=== PATIENT | female | born 1955 | race Caucasian/White ===

== ENCOUNTER 2018-11-26 00:26 | Outpatient (CLI) | payer MEDICAID, SELFPAY ==
--- NOTE | 2018-11-26 12:03 | DI.RAD_ITS ---
SYMPTOMS/DIAGNOSIS: THORACIC BACK PAIN, DORSALGIA, M54.9, LOW BACK PAIN, RT SHOULDER PAIN, M25.519 THORACIC SPINE: Comparison is made with chest x-ray dated . There is stable mild anterior wedging of T 12. There is a mild dextroscoliosis vs patient positioning. Endplate osteophytes are seen greatest on the right and anteriorly in the mid to lower thoracic region. The visualized portions of the lungs appear clear. IMPRESSION: Stable mild degenerative changes and scoliosis. LUMBAR SPINE: Comparison is made with . The patient has undergone posterior fusion with hardware seen at the L 5 - S 1 level for spondylolysis and spondylolisthesis. There is mild spondylolisthesis at L 4 - 5 which appears to be secondary to facet joint degenerative changes. No spondylolysis is seen. The disc spaces are well maintained. Endplate osteophytes are seen greater in the upper lumbar levels. IMPRESSION: Mild L 4 - 5 spondylolisthesis. Status post fusion at L 5 - S 1. RIGHT SHOULDER: There is mild spurring at the AC joint. Spurring is seen at the inferior glenoid and adjacent aspect of the humeral head. The joint space is relatively well maintained. No tendon or joint space calcifications are seen. There is a small bone island in the proximal humeral shaft. IMPRESSION: Mild to moderate degenerative changes.
--- NOTE | 2018-11-26 12:39 | DI.MAMMO_ITS ---
SYMPTOM/DIAGNOSIS: SCREENING, Z12.31 MAMMOGRAMS: Mammograms were interpreted according to the usual protocol including computer analysis with CAD system, tomosynthesis and C view imaging. Comparison is made with exams from 2009 and 2013. The breasts are composed of fatty density tissue. Breast density, Category A. No suspicious masses or suspicious microcalcifications are seen. There has been no significant change. IMPRESSION: Category 1A, negative mammogram. Yearly screening mammography is recommended. [facility] ASSESSMENT OF FINDINGS: Negative. Category 1. Patient will receive a letter notifying them of these results. BI-RAD category A. The breasts are almost entirely fatty.
--- NOTE | 2018-11-26 13:43 | DI.RAD_ITS ---
SYMPTOMS/DIAGNOSIS: OSTEOPENIA, M85.80 DEXA SCAN: Comparison is made with November,. The LANCE image shows hardware at the L5-S1 level. There is mild anterior wedging at the T11 and T12 levels, which appears stable from previous chest x-ray. The bone mineral density measurements of the lumbar spine correspond to a total T score of -0.4, in the normal range. This is a 10.7% decrease when compared with 2008. The bone mineral density measurements of the left hip correspond to a total T score of 0.2 and a femoral neck T score of -0.5, in the normal range. This is a 10.4% decrease when compared with 2008. The left forearm bone mineral density measurements correspond to a T score of the distal third of -0.6, in the normal range. The forearm was not analyzed on the previous exam. IMPRESSION: Normal bone mineral density. There has been a decrease in bone density of the hip and spine of approximately 10% when compared with the previous exam.
[2018-11-26 14:50] LABS: COMMENT (LAB VIEW ONLY) 30.31 mg/dL; Microalb ug/mg Crea 29.4 ug/mg Cr
[2018-11-26 14:56] LABS: HCT 44.3 % (36.0-46.0); HGB 14.9 g/dL (12.0-15.5); Mean Corp. HGB Concentration 33.6 g/dL (32.0-36.0); Mean Corpuscular Hemoglobin 29.4 pg (27.0-33.0); Mean Corpuscular Volume 87.4 fL (80-95); Mean Platelet Volume 10.4 fL (8.0-11.0); Platelet Count 430 x1000/uL (130-400); RBC 5.07 m/cumm (4.00-5.20); RBC Distribution Width 14.4 % (11.7-14.6); White Blood Cell Count 22.66 k/cumm (4.4-10.8)
[2018-11-26 15:01] LABS: ALT 29 U/L (12-78); AST 12 U/L (15-37); Albumin 3.5 g/dL (3.4-5.0); Alkaline Phosphatase 99 U/L (46-116); Anion Gap 10.8 mmol/L (3-11); BUN 24 mg/dL (7-18); Bilirubin, Total 0.4 mg/dL (0.2-1.0); CO2 29.2 mmol/L (21.0-32.0); CREATININE 1.35 mg/dL (0.55-1.02); Calcium 10.2 mg/dL (8.5-10.1); Chloride 99 mmol/L (98-107); Cholesterol 168 mg/dL (50-200); Estimated GFR 39.48 (mL/min/1.73m2); Glucose 260 mg/dL (70-100); HDL Cholesterol 54 mg/dL (40-60); LDL CHOLESTEROL 80 mg/dL (<100); Potassium 4.5 mmol/L (3.5-5.1); Sodium 139 mmol/L (136-145); Total Protein 7.9 g/dL (6.4-8.2); Triglyceride 183 mg/dL (30-150)
[2018-11-26 15:12] LABS: Hemoglobin A1C 7.2 % (4.5-6.2)
[2018-11-28 12:15] LABS: Lyme Ab w Rflx to Lyme Confirm Negative
[2018-11-30 21:19] LABS: Anaplasma phagocytophilum Negative (Negative); B. miyamotoi PCR Negative (Negative); Babesia divergens/MO-1 Negative (Negative); Babesia duncani Negative (Negative); Babesia microti Negative (Negative); Ehrlichia chaffeensis Negative (Negative); Ehrlichia ewingii/canis Negative (Negative); Ehrlichia muris eauclairensis Negative (Negative)
== END 2018-11-26 00:46 ==
PROVIDERS: PCP Family Medicine; Visit Provider Family Medicine
DX: M85.88 Other specified disorders of bone density and structure, other site (principal); M54.6 Pain in thoracic spine; M47.814 Spondylosis without myelopathy or radiculopathy, thoracic region; M54.5 Low back pain; M43.17 Spondylolisthesis, lumbosacral region; Z98.1 Arthrodesis status; M25.511 Pain in right shoulder; M19.011 Primary osteoarthritis, right shoulder; R53.83 Other fatigue; I10 Essential (primary) hypertension; E11.9 Type 2 diabetes mellitus without complications; W57.XXXA Bitten or stung by nonvenomous insect and other nonvenomous arthropods, initial encounter; T14.8XXA Other injury of unspecified body region, initial encounter
CPT/HCPCS: 36415; 77063; 77067; 77080; 80053; 80061; 83721; 85027; 72072; 72110; 73030; 82043; 82570; 83036; 86618; 87798

== ENCOUNTER 2018-12-20 10:55 | Outpatient (CLI) | payer MEDICAID, SELFPAY ==
[2018-12-20 11:19] LABS: Abs Immature Grans 0.02 k/cumm (0.0-0.09); Absolute Basophil Count 0.02 k/cumm (0.0-0.2); Absolute Eosinophil Count 0.26 k/cumm (0.0-0.7); Absolute Lymphocyte Count 3.12 k/cumm (1.2-3.4); Basophils % 0.2; Eosinophils % 2.3; HCT 42.7 % (36.0-46.0); HGB 14.1 g/dL (12.0-15.5); Immature Grans % 0.2; Lymphocytes % 27.6; Mean Corpuscular Hemoglobin 29.9 pg (27.0-33.0); Mean Corpuscular Volume 90.5 fL (80-95); Mean Platelet Volume 9.8 fL (8.0-11.0); Neutrophils % 64.7; Platelet Count 291 x1000/uL (130-400); RBC 4.72 m/cumm (4.00-5.20); RBC Distribution Width 14.7 % (11.7-14.6); White Blood Cell Count 11.29 k/cumm (4.4-10.8)
[2018-12-20 11:23] LABS: Absolute Monocyte Count 0.56 k/cumm (0.11-0.7)
[2018-12-20 12:38] LABS: ALT 39 U/L (12-78); AST 26 U/L (15-37); Albumin 3.1 g/dL (3.4-5.0); Alkaline Phosphatase 83 U/L (46-116); BUN 23 mg/dL (7-18); Bilirubin, Total 0.5 mg/dL (0.2-1.0); Calcium 9.1 mg/dL (8.5-10.1); Chloride 103 mmol/L (98-107); Estimated GFR 50.01 (mL/min/1.73m2); Glucose 202 mg/dL (70-100); Potassium 4.6 mmol/L (3.5-5.1); Sodium 141 mmol/L (136-145)
== END 2018-12-20 11:15 ==
PROVIDERS: PCP Family Medicine; Visit Provider Family Medicine
DX: D72.829 Elevated white blood cell count, unspecified (principal); R79.89 Other specified abnormal findings of blood chemistry
CPT/HCPCS: 36415; 80053; 85025

== ENCOUNTER 2019-02-11 13:34 | Day surgery (SDC) | payer MEDICAID, SELFPAY ==
[2019-02-11 14:12] VITALS: BP 174/64; PULSE 72; RESP 16; TEMP 36.4; O2SAT 96
[2019-02-11] MEDS: Lidocaine 1% Multi-Dose 50 ML VIAL (15:24)
[2019-02-11] MEDS: Sodium Bicarbonate 50 MEQ/50 ML VIAL (15:24)
[2019-02-11] MEDS: Bupivacaine 0.5% Pres-Free 30 ML VIAL (15:40)
--- NOTE | 2019-02-11 16:08 | W.PM.DSUDISC ---
Discharge Plan Disposition Patient Disposition: HOME Condition: Good Discharge Details Reason For Visit: R Hand Dupuytren's Contracture Attending Provider: Tyler Stubbs Primary Care Provider: Kelin Johansen Home Meds and New Rx's Prescriptions: New tramadol 50 mg tablet 50 mg PO Q4H PRN (Reason: pain) Qty: 15 RF: 0 Continued calcium carbonate-vitamin D3 [Oystercal-D] 500 mg(1,250mg) -400 unit tablet 1 tab PO DAILY Qty: 90 RF: 12 cyanocobalamin (vitamin B-12) [Vitamin B-12] 1,000 mcg tablet extended release 1,000 mcg PO DAILY Qty: 90 RF: 4 Novolog U-100 Insulin aspart 100 unit/mL solution 45 unit subcut AC Qty: 10 RF: 12 nystatin [Nystop] 100,000 unit/gram powder 1 applic Topical BID PRN (Reason: rash) Qty: 180 RF: 4 potassium chloride 20 mEq tablet,ER particles/crystals 20 meq PO BID Qty: 180 RF: 12 citalopram [Celexa] 20 mg tablet 20 mg PO DAILY Qty: 90 RF: 4 metoprolol succinate [Toprol XL] 50 mg tablet extended release 24 hr 50 mg PO DAILY Qty: 90 RF: 4 ibuprofen 600 mg tablet 600 mg PO QID PRN (Reason: pain) Qty: 120 RF: 11 BD Insulin Syringe 1 EACH syringe 1 ea Sub-Q DIRECTED Qty: 360 RF: 12 aspirin [Aspirin Low-Strength] 81 MG tablet,chewable 81 mg PO DAILY RF: 0 Thera-Gesic 90 GM cream 2 - 4 gm Topical BID Qty: 90 RF: 3 lorazepam [Ativan] 1 MG tablet 1 tab PO DAILY PRNQty: 30 RF: 2 Narcan 4 MG spray,non-aerosol 4 mg NS PRN Qty: 2 RF: 0 acetaminophen [Tylenol Extra Strength] 500 MG tablet 2,000 mg PO Q4H PRN RF: 0 triamcinolone acetonide 15 GM cream 2 - 4 gm Topical BID PRNQty: 454 RF: 3 magnesium L-lactate [Magtab] 84 mg tablet extended release 336 mg PO TID Qty: 360 RF: 11 blood-glucose meter kit .ROUTE .MEDSUPPLY Qty: 1 RF: 0 blood sugar diagnostic strip .ROUTE .MEDSUPPLY Qty: 400 RF: 11 furosemide [Lasix] 40 mg tablet 40 mg PO BID Qty: 180 RF: 4 gabapentin [Neurontin] 600 mg tablet See Rx Instructions PO DIRECTED Qty: 270 RF: 4 losartan [Cozaar] 100 mg tablet 100 mg PO DAILY Qty: 90 RF: 4 metformin [Glucophage] 1,000 mg tablet 1,000 mg PO DAILY Qty: 90 RF: 4 rosuvastatin [Crestor] 5 mg tablet 5 mg PO DAILY Qty: 90 RF: 4 lancets [OneTouch Delica Lancets] 33 gauge misc 1 ea Intradermal QID Qty: 400 RF: 12 BD Insulin Syringe 1 mL 26 x 1/2 syringe 1 ea Sub-Q AC & HS Qty: 360 RF: 12 allopurinol 100 mg tablet 100 mg PO DAILY Qty: 90 RF: 12 OneTouch Ultra Test strip 1 strip Miscellaneous QID Qty: 4 RF: 12 Lantus U-100 Insulin 100 unit/mL solution 90 unit subcut HS Qty: 10 RF: 12 lidocaine [Lidoderm] 5 % adhesive patch,medicated 1 patch TP DAILY Qty: 30 RF: 6 Synera 70-70 mg patch, medicated self-heating 1 patch TD DAILY AM PRN (Reason: pain) Qty: 30 RF: 4 tramadol [Ultram] 50 mg tablet 50 mg PO TID PRN (Reason: pain) Qty: 90 RF: 2 Airzone Peak Flow Meter 1 EACH device 1 ea Miscellaneous Q4H PRN PRNQty: 1 RF: 0 Discharge Instructions Additional Instructions: Activity: You may use your fingers as tolerated but should avoid any heavy gripping or repetitive activities with the right hand. Keep elevated for the first 48 hours. Dressings: You should keep the wound covered until follow-up. You may keep the initial dressing in place until follow-up, but keep clean and dry. If it gets soiled or wet, you can change the dressing with a light gauze wrap. The wounds may get wet after 72 hours. Medications: - You should take Tylenol and ibuprofen for baseline pain control. - You have Tramadol for breakthrough pain. Follow-up: Sunday Referrals: Tyler Stubbs MD [ [facility] STAFF PHYSICIAN] - Activity:: Elevate Remove Dressings/Wound Care:: 72 hours Shower/Bathe:: 72 hours Diet:: Carb Counting Discharge Orders Discharge Orders: Discharge Order (Routine); Ordered 02/11/19 Ordered By: Tyler Stubbs DS: Diagnosis Discharge Diagnosis (1) Dupuytren's contracture of right hand: Status: Chronic
--- NOTE | 2019-02-12 09:18 | ROE_ITS ---
REPORT OF OPERATIVE DATE OF SURGERY February 11, 2019 PREOPERATIVE DIAGNOSIS Right hand Dupuytren's contracture. POSTOPERATIVE DIAGNOSIS Right hand Dupuytren's contracture. SURGERY Partial palmar fasciectomy of the right hand and right ring finger. SURGEON Tyler Stubbs M.D. CHIEF MEDICAL DIRECTOR John Peralta PA-C. ANESTHESIA Local. FINDINGS There were two central cords easily palpable involving the ring finger, and one was actually going to wards the little finger. There was also a lesser prominent central cord involving the middle finger. The ring finger central cord was excised incompletely. The cords for the little and middle fingers we re partially excised and then released. The central cord terminated at the level of the MP joint, but there was still persistent contracture of the PIP joint of the ring finger. Further dissection ident ified a spiral cord, which had elevated the neurovascular bundle palmarly. The neurovascular bundle w as retracted and the spiral cord was released giving full range of motion of the ring finger. COMPLICATIONS None. DISPOSITION The patient was taken back the Same Day Surgery in stable condition. INDICATION FOR PROCEDURE Samantha is a 63-year-old who has had issues with her right hand with Dupuytren's contracture. She p reviously underwent a collagenase injection to the right hand. However, after some initial moderate i mprovement, things returned. She had notable cord within the palm, but also contracture of the ring f carley PIP joint of at least 30 degrees. Given these findings, I recommended surgical treatment. We di scussed possible treatment options and she agreed to proceed with partial fasciectomy. I reviewed th e risks of the procedure to include bleeding, infection, pain, damage to nerves and vessels, skin hea ling complications, recurrence. Despite these risks, she elected to proceed. PROCEDURE DESCRIPTION Samantha was greeted in the Preoperative Holding area. Her identity was confirmed and the correct si de was identified and marked. She was taken back to the Operating Room. She was placed in the supine position with the right hand o n the hand table. The right hand was prepped with ChloraPrep and draped in a standard fashion. No pro phylactic antibiotics were necessary given a clean hand procedure. A timeout was performed for safe s urgery. The proposed surgical site was anesthetized with 1% lidocaine. Once this has set up, the area was fur ther anesthetized with 0.5% bupivacaine. A Rigoberto incision was centered primarily over the ring fing er ray, but extended slightly towards the little and middle finger for evaluation of those cords thro ugh the same incision. The incision was following the normal palmar creases and making sure not to cr oss any at right angles. This incision was taken up onto the ulnar side of the ring finger where ther e was a likely spiral cord. These Rigoberto-type incisions were opened up with blunt dissection. We sta rted proximally where a central cord was easily identifiable. This was excised all the way up to abou t the __ MP joint. The underlying flexor tendon and the A1 miguel angel were identified as well, and this A 1 miguel angel was released. A small central cord neighboring the ring finger were also identified. These w ere dissected with blunt dissection and then they were sharply excised. This removed the nodularity o f the palm. The cords were no longer palpable. However, there still was significant contracture of th e PIP joint of the ring finger. Therefore, the incisions were carried up over the ulnar aspect of the ring finger. The neurovascular bundle appeared to move palmarly in this area. The neurovascular bund le was retracted, which exposed a spiral cord. It was palpated and sequentially released. I did not t ry to excise the spiral cord given the complexity and its location, but did release it completely so the finger had full range of motion with no contracture. There was no significant bleeding encountere d, but there was a persistent ooze. No tourniquet was used. It did not appear to have any damage to t he neurovascular bundle of the ring finger. The wound was thoroughly irrigated. The skin was closed w ith #5-0 Nylon. The wound was dressed with Xeroform gauze, 4x4 fluffs, and an Dhruv wrap. At the end o f the case, all counts were correct and she was transferred back to the Same Day Surgery in stable co ndition.
== END 2019-02-11 16:35 | disposition home or self-care (01) ==
PROVIDERS: PCP Family Medicine; Visit Provider Student in an Organized Health Care Education/Training Program
PROC: (CPT 26123; principal; 2019-02-11 15:00)
DX: M72.0 Palmar fascial fibromatosis [Dupuytren] (principal)
CPT/HCPCS: 26123

== ENCOUNTER 2019-03-03 15:01 | Outpatient (CLI) | payer MEDICAID, SELFPAY ==
[2019-03-03 15:44] LABS: Abs Immature Grans 0.05 k/cumm (0.0-0.09); Absolute Basophil Count 0.04 k/cumm (0.0-0.2); Absolute Lymphocyte Count 4.74 k/cumm (1.2-3.4); Absolute Monocyte Count 0.69 k/cumm (0.11-0.7); Absolute Neutrophil Count 6.88 k/cumm (1.2-6.7); Basophils % 0.3; Eosinophils % 2.4; HCT 45.5 % (36.0-46.0); Immature Grans % 0.4; Lymphocytes % 37.3; Mean Corpuscular Hemoglobin 29.9 pg (27.0-33.0); Mean Corpuscular Volume 90.8 fL (80-95); Mean Platelet Volume 10.1 fL (8.0-11.0); Monocytes % 5.4; Neutrophils % 54.2; Platelet Count 309 x1000/uL (130-400); RBC 5.01 m/cumm (4.00-5.20); RBC Distribution Width 14.5 % (11.7-14.6)
[2019-03-03 16:20] LABS: Hemoglobin A1C 7.5 % (4.5-6.2)
[2019-03-03 16:23] LABS: ALT 34 U/L (12-78); AST 13 U/L (15-37); Albumin 3.2 g/dL (3.4-5.0); Alkaline Phosphatase 76 U/L (46-116); Anion Gap 6.3 mmol/L (3-11); BUN 24 mg/dL (7-18); Bilirubin, Total 0.4 mg/dL (0.2-1.0); CO2 31.7 mmol/L (21.0-32.0); CREATININE 1.05 mg/dL (0.55-1.02); Calcium 9.2 mg/dL (8.5-10.1); Chloride 101 mmol/L (98-107); Estimated GFR 52.76 (mL/min/1.73m2); Glucose 158 mg/dL (70-100); Sodium 139 mmol/L (136-145); Total Protein 7.3 g/dL (6.4-8.2)
== END 2019-03-03 15:21 ==
PROVIDERS: PCP Family Medicine; Visit Provider Family Medicine
DX: D72.829 Elevated white blood cell count, unspecified (principal); I10 Essential (primary) hypertension; N28.9 Disorder of kidney and ureter, unspecified
CPT/HCPCS: 80053; 85027; 83036; 85025

== ENCOUNTER → 2019-05-05 10:49 | Outpatient (BNVA) | payer MEDICARE, MEDICAID, SELFPAY | PROVIDERS: PCP Family Medicine; Referring Provider Family Medicine; Visit Provider Student in an Organized Health Care Education/Training Program | DX: M17.11 Unilateral primary osteoarthritis, right knee (principal); M17.12 Unilateral primary osteoarthritis, left knee; I10 Essential (primary) hypertension; E11.9 Type 2 diabetes mellitus without complications | CPT/HCPCS: 20610; 99213; J1040 ==

== ENCOUNTER 2019-07-29 12:33 | Outpatient (REF) | payer MEDICARE, MEDICAID, SELFPAY ==
[2019-07-29 13:57] LABS: Bilirubin Negative (Negative); Blood Small (Negative); Clarity Cloudy (Clear); Glucose Negative (Negative); Ketones Negative (Negative); Leukocyte Esterase Moderate (Negative); Nitrite Positive (Negative); Urobilinogen 0.2 EU/dL (Up TO 0.2); pH 6.5 (5-8)
[2019-07-29 14:12] LABS: Bacteria Moderate HPF (Negative); C & S Indicated? Yes; Casts Negative LPF (Negative); Crystals Negative HPF (Negative); Epithelial Cells Few HPF (Negative); Mucus Negative (Negative); WBC >50 HPF (0-5)
== END 2019-07-29 12:53 ==
LOC: LBN 12:33
PROVIDERS: PCP Family Medicine; Visit Provider Family Medicine
DX: R39.89 Other symptoms and signs involving the genitourinary system (principal)
CPT/HCPCS: 87077; 81003; 81015; 87086; 87186

== ENCOUNTER 2019-12-30 15:33 | Outpatient (CLI) | payer MEDICARE, SELFPAY ==
[2019-12-30 16:49] LABS: ALT 30 U/L (14-59); AST 26 U/L (15-37); Albumin 3.6 g/dL (3.4-5.0); Alkaline Phosphatase 79 U/L (46-116); Anion Gap 8.8 mmol/L (3-11); BUN 22 mg/dL (7-18); Bilirubin, Total 0.5 mg/dL (0.2-1.0); CO2 31.2 mmol/L (21.0-32.0); Calculated LDL 58 mg/dL (<100); Chloride 102 mmol/L (98-107); Cholesterol 142 mg/dL (<200); Glucose 179 mg/dL (74-106); HDL Cholesterol 44 mg/dL (40-60); Potassium 3.6 mmol/L (3.5-5.1); Sodium 142 mmol/L (136-145); Total Protein 7.3 g/dL (6.4-8.2); Triglyceride 203 mg/dL (<150)
[2019-12-30 17:09] LABS: Uric Acid 4.9 mg/dL (2.6-6.0)
[2019-12-30 18:39] LABS: Hemoglobin A1C 6.9 % (3.8-5.6)
== END 2019-12-30 15:53 ==
PROVIDERS: PCP Family Medicine; Visit Provider Family Medicine
DX: D72.829 Elevated white blood cell count, unspecified (principal); E11.39 Type 2 diabetes mellitus with other diabetic ophthalmic complication; N28.9 Disorder of kidney and ureter, unspecified; I10 Essential (primary) hypertension; M10.9 Gout, unspecified
CPT/HCPCS: 36415; 80053; 80061; 83036; 84550

== ENCOUNTER → 2021-02-25 08:52 | Outpatient (BNVA) | payer MEDICARE, SELFPAY | PROVIDERS: PCP Family Medicine; Referring Provider Family Medicine; Visit Provider Student in an Organized Health Care Education/Training Program | DX: M72.0 Palmar fascial fibromatosis [Dupuytren] (principal); Z98.890 Other specified postprocedural states | CPT/HCPCS: 99213 ==

== ENCOUNTER 2021-03-03 01:54 | Outpatient (CLI) | payer MEDICARE, SELFPAY ==
--- NOTE | 2021-03-03 07:30 | DI.RAD_ITS ---
Exam(s) XR CHEST 2V PA LATERAL EXAM: XR CHEST 2V PA LATERAL CLINICAL HISTORY: F/U OUTSIDE CHEST XR,ENLARGED HEART,R93.89 TECHNIQUE: COMPARISON: CR XR Chest 2 Views from 07/12/2020 FINDINGS: The heart appears mildly enlarged. The lungs are predominantly clear with apparent small area of sca rring in mid left lung. No pleural effusion seen. No gross interval change appearance comparison wi prior examination July 12, 2020. IMPRESSION: RADIATION DOSE DELIVERED: Total DLP
== END 2021-03-03 02:14 ==
PROVIDERS: PCP Family Medicine; Visit Provider Family Medicine
DX: I51.7 Cardiomegaly (principal); J98.4 Other disorders of lung
CPT/HCPCS: 71046

== ENCOUNTER 2021-04-20 08:33 | Day surgery (SDC) | payer MEDICARE, SELFPAY ==
[2021-04-20 08:37] VITALS: BP 149/59; PULSE 73; RESP 15; TEMP 36.3; O2SAT 95
--- NOTE | 2021-04-20 10:16 | W.PM.DSUDISC ---
Discharge Plan Disposition Patient Disposition: HOME Condition: Stable Discharge Details Reason For Visit: Left Dupuytren's contracture Attending Provider: Tyler Stubbs Primary Care Provider: Kelin Johansen Home Meds and New Rx's Prescriptions: New hydrocodone-acetaminophen 5-325 mg tablet 1 tab PO Q6H PRNQty: 5 RF: 0 Continued (DME) BD Insulin Syringe 1 EACH syringe 1 ea Sub-Q DIRECTED Qty: 360 RF: 12 aspirin [Aspirin Low-Strength] 81 MG tablet,chewable 81 mg PO DAILY RF: 0 Narcan 4 MG spray,non-aerosol 4 mg NS PRN Qty: 2 RF: 0 acetaminophen [Tylenol Extra Strength] 500 MG tablet 2,000 mg PO Q4H PRN RF: 0 (DME) blood-glucose meter kit See Dose Instructions .ROUTE .MEDSUPPLY Qty: 1 RF: 0 albuterol sulfate [Ventolin HFA] 90 mcg/actuation HFA aerosol inhaler 2 puff IH Q6H PRN (Reason: shortness of breath or wheezing) Qty: 8.5 RF: 12 triamcinolone acetonide 0.1 % cream 1 applic Topical BID PRN (Reason: psoriasis) Qty: 454 RF: 6 gabapentin [Neurontin] 600 mg tablet See Rx Instructions PO DIRECTED Qty: 270 RF: 4 (DME) blood sugar diagnostic Strip 1 strip Miscellaneous QID Qty: 300 RF: 12 (DME) lancets [OneTouch Delica Lancets] 33 gauge misc 1 ea Intradermal QID Qty: 300 RF: 12 metoprolol succinate [Toprol XL] 50 mg tablet extended release 24 hr 50 mg PO DAILY Qty: 90 RF: 4 furosemide [Lasix] 40 mg tablet 40 mg PO BID Qty: 180 RF: 4 cyanocobalamin (vitamin B-12) [Vitamin B-12] 1,000 mcg tablet extended release 1,000 mcg PO DAILY Qty: 90 RF: 4 citalopram [Celexa] 20 mg tablet 20 mg PO DAILY Qty: 90 RF: 4 allopurinol 100 mg tablet 100 mg PO DAILY Qty: 90 RF: 12 albuterol sulfate 90 mcg/actuation HFA aerosol inhaler 2 puff IH QID Qty: 18 RF: 4 (DME) BD Insulin Syringe 1 mL 26 x 1/2 syringe 1 ea Sub-Q AC & HS Qty: 360 RF: 12 losartan [Cozaar] 100 mg tablet 100 mg PO DAILY Qty: 90 RF: 4 magnesium L-lactate [Magtab] 84 mg tablet extended release 336 mg PO TID Qty: 360 RF: 11 melatonin 10 mg capsule 10 mg PO HS PRN (Reason: sleep) Qty: 90 RF: 4 metformin [Glucophage] 1,000 mg tablet 1,000 mg PO DAILY Qty: 90 RF: 4 Thera-Gesic 15-1 % cream 1 applic Topical BID Qty: 90 RF: 4 nystatin [Nystop] 100,000 unit/gram powder 1 applic Topical BID PRN (Reason: rash) Qty: 180 RF: 4 (DME) pen needle, diabetic [Ultra-Thin II Ins Pen Yeaddiss] 29 gauge x 1/2 needle See Rx Instructions .ROUTE .MEDSUPPLY Qty: 400 RF: 6 potassium chloride 20 mEq tablet,ER particles/crystals 20 meq PO BID Qty: 180 RF: 12 rosuvastatin [Crestor] 5 mg tablet 5 mg PO DAILY Qty: 90 RF: 4 Lantus U-100 Insulin 100 unit/mL solution 90 unit subcut HS Qty: 10 RF: 12 insulin lispro [Humalog U-100 Insulin] 100 unit/mL solution 45 unit SC TID Qty: 100 RF: 6 calcium carbonate-vit D3-min 600 mg calcium- 400 unit tablet 1 tab PO BID Qty: 180 RF: 5 ibuprofen 600 mg tablet 600 mg PO QID PRN (Reason: pain) Qty: 120 RF: 11 tramadol 50 mg tablet 50 mg PO BID Qty: 60 RF: 1 (DME) Airzone Peak Flow Meter 1 EACH device 1 ea Miscellaneous Q4H PRN Qty: 1 RF: 0 Discharge Instructions Additional Instructions: Dupuytren's Contracture Discharge Instructions Activity: You may use your fingers for light activity. You should limit any excessive motion or forceful gripping until the sutures have been removed. Dressings: You should keep the initial surgical dressing in place for at least 3 days. You may remove your dressings and get the wound wet after 3 days. You should keep the dressings and the wound clean at all times. You may keep the initial dressing in place until your follow-up but keep the wound covered with light gauze until the sutures are removed. Medications: - You should take Tylenol and Ibuprofen around the clock as prescribed or per deicer repairer's recommendations. - You have Hydrocodone prescribed for breakthrough pain control. Take only as needed and limit use as much as possible. This may cause constipation. Follow-up: 7-10 days for wound check and suture removal. Referrals: Tyler Stubbs MD [ [facility] STAFF PHYSICIAN] - Activity:: Activity as Tolerated Remove Dressings/Wound Care:: 72 hours Shower/Bathe:: 72 hours Diet:: As Tolerated Discharge Orders Discharge Orders: Discharge Order (Routine); Ordered 04/20/21 Ordered By: Emilee Fuller DS: Diagnosis Discharge Diagnosis (1) Dupuytren's contracture of left hand: Status: Acute
[2021-04-20] MEDS: Lidocaine 1% Pres-Free 5 ML VIAL (10:21)
[2021-04-20] MEDS: Sodium Bicarbonate 50 MEQ/50 ML VIAL (10:22)
[2021-04-20 10:35] VITALS: BP 151/56; PULSE 63; RESP 18; TEMP 36.3; O2SAT 94
--- NOTE | 2021-04-20 21:47 | ROE_ITS ---
Date of service: 04/20/21 Time of Service: 10:48 Operative Note Operative Note DATE OF PROCEDURE: 04/20/21 PRE-OP DIAGNOSIS: Left Dupuytren's Disease of the Hand and Ring Finger POST-OP DIAGNOSIS: same PROCEDURE: Partial Palmar Fasciectomy - Left Hand SURGEON: Tyler Stubbs ANESTHESIA TYPE: Local By Surgeon Refer to Anesthesia Record ESTIMATED BLOOD LOSS: 20 PATHOLOGY: none sent TOURNIQUET TIME: 0 COMPLICATIONS: None Patient was transported to: same day Patient's condition: stable Indications: I have seen Joan in clinic for symptoms of Dupuytren's disease of the left hand with significant nodularity and contracture. The symptoms had not responded to conservative measures. I discussed partial palmar fasciectomy with the patient. I reviewed the risks of the procedure to include, but not limited to, bleeding, infection, pain, stiffness, recurrence, damage to nerves or vessels, continued catching, recurrence. Despite these risks, the patient elected to proceed. Findings: There is a primary central cord within the palm of the ring finger ray. There is also natatory components as well as significant adherence of the overlying skin in the cord. Additionally, central cords of the middle finger and little finger rays were also present. Procedure Description: Joan was greeted in the preoperative holding area where the correct side was identified and marked. The consent was reviewed with the patient and signed. All questions were answered. Joan was taken back to the operating room. The patient was placed into the supine position on the operating room table with the left arm on an arm board. All bony prominences were well padded. No prophylactic antibiotics were administered since this was a clean, elective hand surgical case. The left arm was then prepped with Chloraprep and draped in a standard fashion with extremity drape. A timeout to confirm correct identity, side and site, procedure, allergies, anesthesia, and medical concerns was performed. The surgical site was marked as a Rigoberto's incision directly over the prominent central cord of the ring finger ray. This was then injected with 1% lidocaine with epinephrine buffered with sodium bicarbonate. The patient tolerated this well and once the anesthetic had setup, the procedure began. Sharp dissection was carried down to the skin. Deeper dissection was taken on top of the central cord using both a Independence blade and tenotomy scissors. The cord was further dissected out circumferentially. Proximally, there are 2 cordlike structures, one primary cord which is superficial and one smaller cord which was deeper. This cord was transected at its proximal edge. The cord was further dissected off the overlying skin and out to the level of the MCP joint. It was transected in this region. The deeper cord had contributions over to the central cord of the middle finger and little finger. This was also resected. The central cords of the little finger and middle finger were identified from within the same wound. These cords were transected to release them and a portion removed. No tourniquet was used. There is no significant bleeding suffered some ooze of the skin. The wound was thoroughly irrigated. The tissue was closed with 4-0 nylon. This was dressed with gauze and a Conform dressing. The patient tolerated the procedure well and was returned to the Same Day Surgery area in a stable condition suffering no known complication.
== END 2021-04-20 10:52 | disposition home or self-care (01) ==
PROVIDERS: PCP Family Medicine; Visit Provider Student in an Organized Health Care Education/Training Program
PROC: (CPT 26125; principal; 2021-04-20 10:30)
DX: M72.0 Palmar fascial fibromatosis [Dupuytren] (principal)
CPT/HCPCS: 26125 ×2; 26123

== ENCOUNTER → 2021-04-29 10:01 | Outpatient (BNVA) | payer MEDICARE, SELFPAY | PROVIDERS: PCP Family Medicine; Referring Provider Family Medicine; Visit Provider Physician Assistant | DX: Z47.89 Encounter for other orthopedic aftercare (principal); M72.0 Palmar fascial fibromatosis [Dupuytren] ==

== ENCOUNTER 2021-05-04 06:17 | Day surgery (SDC) | payer MEDICARE, SELFPAY ==
[2021-05-04 06:41] VITALS: BP 109/63; PULSE 85; RESP 16; TEMP 37.1; O2SAT 95
--- NOTE | 2021-05-04 07:18 | W.PM.DSUDISC ---
Discharge Plan Disposition Patient Disposition: HOME Condition: Good Discharge Details Reason For Visit: Right Ring Finger Dupuytren's Contracture Attending Provider: Tyler Stubbs Primary Care Provider: Kelin Johansen Home Meds and New Rx's Prescriptions: Continued albuterol sulfate [Ventolin HFA] 90 mcg/actuation HFA aerosol inhaler 2 puff IH Q6H PRN (Reason: shortness of breath or wheezing) Qty: 8.5 RF: 12 tramadol 50 mg tablet 50 mg PO TID PRN (Reason: pain) Qty: 90 RF: 4 (DME) BD Insulin Syringe 1 EACH syringe 1 ea Sub-Q DIRECTED Qty: 360 RF: 12 aspirin [Aspirin Low-Strength] 81 MG tablet,chewable 81 mg PO DAILY RF: 0 Narcan 4 MG spray,non-aerosol 4 mg NS PRN Qty: 2 RF: 0 acetaminophen [Tylenol Extra Strength] 500 MG tablet 2,000 mg PO Q4H PRN RF: 0 (DME) blood-glucose meter kit See Dose Instructions .ROUTE .MEDSUPPLY Qty: 1 RF: 0 triamcinolone acetonide 0.1 % cream 1 applic Topical BID PRN (Reason: psoriasis) Qty: 454 RF: 6 gabapentin [Neurontin] 600 mg tablet See Rx Instructions PO DIRECTED Qty: 270 RF: 4 (DME) blood sugar diagnostic Strip 1 strip Miscellaneous QID Qty: 300 RF: 12 (DME) lancets [OneTouch Delica Lancets] 33 gauge misc 1 ea Intradermal QID Qty: 300 RF: 12 metoprolol succinate [Toprol XL] 50 mg tablet extended release 24 hr 50 mg PO DAILY Qty: 90 RF: 4 furosemide [Lasix] 40 mg tablet 40 mg PO BID Qty: 180 RF: 4 cyanocobalamin (vitamin B-12) [Vitamin B-12] 1,000 mcg tablet extended release 1,000 mcg PO DAILY Qty: 90 RF: 4 citalopram [Celexa] 20 mg tablet 20 mg PO DAILY Qty: 90 RF: 4 allopurinol 100 mg tablet 100 mg PO DAILY Qty: 90 RF: 12 albuterol sulfate 90 mcg/actuation HFA aerosol inhaler 2 puff IH QID Qty: 18 RF: 4 (DME) BD Insulin Syringe 1 mL 26 x 1/2 syringe 1 ea Sub-Q AC & HS Qty: 360 RF: 12 losartan [Cozaar] 100 mg tablet 100 mg PO DAILY Qty: 90 RF: 4 magnesium L-lactate [Magtab] 84 mg tablet extended release 336 mg PO TID Qty: 360 RF: 11 melatonin 10 mg capsule 10 mg PO HS PRN (Reason: sleep) Qty: 90 RF: 4 metformin [Glucophage] 1,000 mg tablet 1,000 mg PO DAILY Qty: 90 RF: 4 Thera-Gesic 15-1 % cream 1 applic Topical BID Qty: 90 RF: 4 nystatin [Nystop] 100,000 unit/gram powder 1 applic Topical BID PRN (Reason: rash) Qty: 180 RF: 4 (DME) pen needle, diabetic [Ultra-Thin II Ins Pen [place]] 29 gauge x 1/2 needle See Rx Instructions .ROUTE .MEDSUPPLY Qty: 400 RF: 6 potassium chloride 20 mEq tablet,ER particles/crystals 20 meq PO BID Qty: 180 RF: 12 rosuvastatin [Crestor] 5 mg tablet 5 mg PO DAILY Qty: 90 RF: 4 Lantus U-100 Insulin 100 unit/mL solution 90 unit subcut HS Qty: 10 RF: 12 calcium carbonate-vit D3-min 600 mg calcium- 400 unit tablet 1 tab PO BID Qty: 180 RF: 5 ibuprofen 600 mg tablet 600 mg PO QID PRN (Reason: pain) Qty: 120 RF: 11 (DME) Airzone Peak Flow Meter 1 EACH device 1 ea Miscellaneous Q4H PRN Qty: 1 RF: 0 insulin lispro [Humalog U-100 Insulin] 100 unit/mL solution 25 - 45 unit SC TID RF: 0 hydrocodone-acetaminophen 5-325 mg tablet 1 tab PO Q6H PRNQty: 5 RF: 0 Discharge Instructions Additional Instructions: Dupuytren's Contracture Discharge Instructions Activity: You may use your fingers for light activity. You should limit any excessive motion or forceful gripping until the sutures have been removed. Dressings: You should keep the initial surgical dressing in place for at least 3 days. You may keep the initial dressing in place until your follow-up or you may remove your dressings and get the wound wet after 3 days. However, you should keep the wound covered with light gauze until the sutures are removed. Keep the dressings and the wound clean at all times. You may apply ice as needed for pain relief. Medications: - You should take Tylenol (500mg every 4 hours or 1000mg every 8 hours) and Ibuprofen (600mg every 8 hours) for baseline pain control. - You have your home Tramadol prescribed for breakthrough pain control. Follow-up: 7-10 days for wound check and suture removal. Referrals: Tyler Stubbs MD [ [facility] STAFF PHYSICIAN] - Activity:: Elevate Remove Dressings/Wound Care:: 72 hours Shower/Bathe:: 72 hours Diet:: As Tolerated Discharge Orders Discharge Orders: Discharge Order (Routine); Ordered 05/04/21 Ordered By: Tyelr Stubbs DS: Diagnosis Discharge Diagnosis (1) Dupuytren's contracture of right hand: Status: Chronic
[2021-05-04] MEDS: Sodium Bicarbonate 50 MEQ/50 ML VIAL (07:21)
--- NOTE | 2021-05-04 08:26 | ROE_ITS ---
Date of service: 05/04/21 Time of Service: 08:15 Operative Note Operative Note DATE OF PROCEDURE: 05/04/21 PRE-OP DIAGNOSIS: Right Ring Finger Dupuytren's Contracture POST-OP DIAGNOSIS: same PROCEDURE: Right Ring Finger and Palm Partial Fasciectomy SURGEON: Tyler Stubbs Refer to Anesthesia Record ESTIMATED BLOOD LOSS: 5 PATHOLOGY: none sent COMPLICATIONS: None Patient was transported to: same day Patient's condition: stable Indications: I have seen Samantha in clinic for recurrent ring finger and palmar Dupuytren's disease. She had initial enzyme injection with little improvement and a partial palmar fasciectomy performed with recurrence of a contracture of the ring finger PIP joint. The symptoms had not responded to conservative measures. I discussed partial fasciectomy with the patient. I reviewed the risks of the procedure to include, but not limited to, bleeding, infection, pain, stiffness, incomplete release, damage to nerves or vessels, skin healing difficulties, recurrence. Despite these risks, the patient elected to proceed. Findings: There is scarring centrally in the palm with some minor recurrence of the pretendinous cord. This was resected off of the overlying skin and the underlying A1 miguel angel. Additionally, there is a separate spiral cord complex which remained palmar to the neurovascular bundle and was resected all the way to the palmar capsule of the PIP joint. After resection of this cord, the finger is able to fully extend to the PIP joint. Procedure Description: Samantha was greeted in the preoperative holding area where the correct side was identified and marked. The consent was reviewed with the patient and signed. All questions were answered. She was taken back to the operating room. The patient was placed into the supine position on the operating room table with the right arm on an arm board. All bony prominences were well padded. No prophylactic antibiotics were administered since this was a clean, elective hand surgical case. The right arm was then prepped with Chloraprep and draped in a standard fashion with stockinette and extremity drape. A timeout to confirm correct identity, side and site, procedure, allergies, anesthesia, and medical concerns was performed. The surgical site was marked as a Francisco type incision starting in the mid palm from her previous incision extending to the PIP flexion crease. A digital block was then performed utilizing 1% lidocaine with epinephrine buffered with sodium bicarbonate. The patient tolerated this well and once the anesthetic had setup, the procedure began. The skin was incised sharply. The deep tissues were dissected bluntly. Starti ng proximally, there was notable scarring from the previous surgery. There was a recurrence of a pretendinous cord which was seen tethered between the skin and the A1 miguel angel. This cord was elevated from the overlying skin and transected. It was then released moving from a proximal distal direction and eventually elevated off of the underlying A1 miguel angel. The A1 miguel angel was also opened. This material was then removed. The Francisco incision was continued up to the level of the PIP flexion crease. Gentle and careful blunt dissection was utilized to elevate the skin flaps. A suture is used to retract skin edges with occasional use of a Heiss retractor. The ulnar aspect of the finger had a palpable spiral cord which was traced from the level of the MCP joint distal to the PIP joint. Gentle dissection was carried starting from proximal to distal direction. There is no apparent neurovascular structure on top of this cord. Was a cord was fully identified it was transected at the level of the MCP flexion crease. He was then elevated out of the wound and deep to this the neurovascular bundle was identified. I continue dissect the cord moving from a proximal to distal direction. Careful attention was paid to the position of the neurovascular bundle which appeared to stay deep, or dorsal, to the cord as it traversed from a slightly ulnar direction to more central location at the level of the volar PIP joint. This was traced all the way to the PIP joint and then transected. With this released the ring finger PIP joint was able to be fully extended with minimal difficulty. Patient was also able to demonstrate full active extension and flexion of the finger. There is no appearance of any neurovascular injury. Some skin bleeding was coagulated with bipolar electrocautery. The wound was then irrigated and the skin was closed with a 4-0 Nylon. This was dressed with gauze and a Conform dressing. The patient tolerated the procedure well and was returned to the Same Day Surgery area in a stable condition suffering no known complication.
[2021-05-04 08:28] VITALS: BP 154/67; PULSE 77; RESP 16; TEMP 36.7; O2SAT 92
== END 2021-05-04 08:50 | disposition home or self-care (01) ==
PROVIDERS: PCP Family Medicine; Visit Provider Student in an Organized Health Care Education/Training Program
PROC: (CPT 26123; principal; 2021-05-04 07:30)
DX: M72.0 Palmar fascial fibromatosis [Dupuytren] (principal)
CPT/HCPCS: 26123

== ENCOUNTER 2022-02-14 10:22 | Outpatient (REF) | payer MEDICARE, SELFPAY ==
[2022-02-14 21:33] LABS: COMMENT (LAB VIEW ONLY) 45.52 mg/dL; Microalb ug/mg Crea 50.3 ug/mg Cr
[2022-02-14 23:59] LABS: *AMPHETAMINES SCREEN URINE Negative (Negative); *BARBITURATES SCREEN URINE Negative (Negative); *BENZODIAZEPINES SCREEN URINE Negative (Negative); Cannabinoids THC Negative (Negative); Cocaine Screen,Urine Negative (Negative); METHADONE URINE SCREEN Negative (Negative); OPIATES URINE SCREEN Negative (Negative)
[2022-02-15 00:01] LABS: Tricyclic Antidepressants Negative (Negative)
== END 2022-02-14 10:23 | disposition home or self-care (01) ==
LOC: LBN 10:22
PROVIDERS: PCP Family Medicine; Visit Provider Family Medicine
DX: D72.829 Elevated white blood cell count, unspecified (principal); E11.39 Type 2 diabetes mellitus with other diabetic ophthalmic complication; E78.5 Hyperlipidemia, unspecified; G47.30 Sleep apnea, unspecified; G89.4 Chronic pain syndrome; I10 Essential (primary) hypertension; E11.9 Type 2 diabetes mellitus without complications
CPT/HCPCS: 80307; 82043; 82570

== ENCOUNTER 2022-04-14 14:00 | Outpatient (REF) | payer MEDICARE, SELFPAY ==
[2022-04-15 14:14] LABS: COVID-19 RT-PCR UVMMC Result Negative (Negative)
== END 2022-04-14 14:01 | disposition home or self-care (01) ==
LOC: LBN 14:00
PROVIDERS: PCP Family Medicine; Visit Provider Emergency Medicine
DX: Z20.822 Contact with and (suspected) exposure to COVID-19 (principal)
CPT/HCPCS: U0003

== ENCOUNTER 2022-04-25 02:54 | Outpatient (CLI) | payer MEDICARE, SELFPAY ==
[2022-04-25 11:22] LABS: HCT 41.2 % (36.0-46.0); MCH 30.4 pg (27.0-33.0); MCV 89 fL (80-95); MPV 9.9 fL (8.0-11.0); Platelet Count 338 10^3/uL (130-400); RBC 4.61 10^6/uL (3.93-5.22); RDW 13.6 % (11.7-14.6); WBC 13.84 10^3/uL (4.4-10.8)
[2022-04-25 12:36] LABS: ALT 29 U/L (14-59); AST 25 U/L (15-37); Albumin 3.2 g/dL (3.4-5.0); Alkaline Phosphatase 80 U/L (46-116); Anion Gap 6.3 mmol/L (3-11); BUN 24 mg/dL (7-18); Bilirubin, Total 0.5 mg/dL (0.2-1.0); CO2 30.7 mmol/L (21.0-32.0); CREATININE 1.2 mg/dL (0.55-1.02); Calculated LDL 50 mg/dL (<100); Chloride 97 mmol/L (98-107); Cholesterol 136 mg/dL (<200); Estimated GFR 44.81 (mL/min/1.73m2); Glucose 160 mg/dL (74-106); HDL Cholesterol 50 mg/dL (40-60); Potassium 4.2 mmol/L (3.5-5.1); Sodium 134 mmol/L (136-145); TSH (W/Ref FT4) 2.02 uIU/mL (0.36-3.74); Total Protein 7.5 g/dL (6.4-8.2); Triglyceride 183 mg/dL (<150); Vitamin B12 1625 pg/mL (193-986)
[2022-04-25 12:45] LABS: Uric Acid 5.8 mg/dL (2.6-6.0)
== END 2022-04-25 02:55 | disposition home or self-care (01) ==
LOC: LBO 02:54
PROVIDERS: PCP Family Medicine; Visit Provider Family Medicine
DX: D72.829 Elevated white blood cell count, unspecified (principal); E11.39 Type 2 diabetes mellitus with other diabetic ophthalmic complication; E53.8 Deficiency of other specified B group vitamins; G47.30 Sleep apnea, unspecified; G89.4 Chronic pain syndrome; I10 Essential (primary) hypertension; M10.9 Gout, unspecified; E78.5 Hyperlipidemia, unspecified
CPT/HCPCS: 36415; 80053; 80061; 85027; 82607; 84443; 84550

== ENCOUNTER 2023-02-15 13:01 | Outpatient (REF) | payer MEDICARE, SELFPAY ==
[2023-02-15 14:02] LABS: COMMENT (LAB VIEW ONLY) 228.64 mg/dL; Microalb ug/mg Crea 15.7 ug/mg Cr
[2023-02-15 14:04] LABS: *AMPHETAMINES SCREEN URINE Negative (Negative); *BARBITURATES SCREEN URINE Negative (Negative); *BENZODIAZEPINES SCREEN URINE Negative (Negative); Cannabinoids THC Negative (Negative); Cocaine Screen,Urine Negative (Negative); METHADONE URINE SCREEN Negative (Negative); OPIATES URINE SCREEN Negative (Negative)
[2023-02-15 14:05] LABS: Tricyclic Antidepressants Negative (Negative)
[2023-02-21 08:59] LABS: Tramadol 24829 ng/mL (Cutoff:25)
== END 2023-02-15 13:02 | disposition home or self-care (01) ==
LOC: LBN 13:01
PROVIDERS: PCP Family Medicine; Visit Provider Family Medicine
DX: G89.4 Chronic pain syndrome (principal); E11.9 Type 2 diabetes mellitus without complications; E78.5 Hyperlipidemia, unspecified; Z79.891 Long term (current) use of opiate analgesic
CPT/HCPCS: 80307; 80373; 82043; 82570

== ENCOUNTER 2023-04-07 13:54 | Emergency (ER) | payer MEDICARE, SELFPAY ==
[2023-04-07 13:57] VITALS: BP 179/68; PULSE 67; RESP 18; TEMP 36.4; O2SAT 97
--- NOTE | 2023-04-07 14:00 | DI.RAD_ITS ---
Exam(s) XR PORTABLE CHEST AP EXAM: XR PORTABLE CHEST AP CLINICAL HISTORY: Shortness of breath TECHNIQUE: 2D digital imaging was performed of the chest. One image was obtained. An AP view was ob tained. COMPARISON: CR XR CHEST 2V PA LATERAL from 03/03/2021 FINDINGS: MEDIASTINUM: Normal. HEART: No megaly. PULMONARY VASCULATURE: Normal. LUNGS: There are increased lung markings in the left base medially. No focal consolidating infiltrat e. PLEURAL SPACE: No pleural effusion or pneumothorax. BONE:Within normal limits for the patient's age. OTHER FINDINGS:Normal. IMPRESSION: Mild left basilar atelectasis. DATA REPOSITORY: RADIATION DOSE DELIVERED:
--- NOTE | 2023-04-07 14:05 | W.ED.GENAD ---
Discharge Plan Disposition Patient Disposition: Home Discharge Details Clinical Impression: Cough, Increased sputum production, Bronchitis Primary Care Provider: Kelin Johansen ED Provider: Wilberto Boucher [place] Meds and New Rx's Prescriptions: New guaifenesin [Mucinex] 600 mg tablet extended release 12hr 600 mg PO Q12H PRNQty: 7 0RF Continued albuterol sulfate 90 mcg/actuation HFA aerosol inhaler 2 puff IH QID Qty: 18 4RF allopurinol 100 mg tablet 100 mg PO DAILY Qty: 90 3RF citalopram [Celexa] 20 mg tablet 20 mg PO DAILY Qty: 90 4RF furosemide [Lasix] 40 mg tablet 40 mg PO BID Qty: 180 4RF gabapentin [Neurontin] 600 mg tablet See Rx Instructions PO DIRECTED Qty: 270 4RF Dose Instruction: PO DIRECTED; TAKE 1 TAB QAM AND NOON; TAKE 2 TAB QPM Rx Instructions: PO DIRECTED; TAKE 1 TAB QAM AND NOON; TAKE 2 TAB QPM insulin glargine [Lantus U-100 Insulin] 100 unit/mL solution 90 unit subcut HS Qty: 10 8RF Rx Instructions: E11.9 losartan [Cozaar] 100 mg tablet 100 mg PO DAILY Qty: 90 3RF metformin 1,000 mg tablet 1,000 mg PO DAILY Qty: 90 4RF metoprolol succinate [Toprol XL] 50 mg tablet extended release 24 hr 50 mg PO DAILY Qty: 90 4RF naloxone [Narcan] 4 mg/actuation spray,non-aerosol 4 mg NS PRN Qty: 2 0RF nystatin [Nystop] 100,000 unit/gram powder 1 applic Topical BID PRN (Reason: rash) Qty: 180 4RF Rx Instructions: 3 month supply (DME) pen needle, diabetic [Comfort EZ Pen [place]] 31 gauge x 5/16 needle See Rx Instructions .Route Qty: 100 3RF Rx Instructions: As directed E11.9 Once daily injection (DME) pen needle, diabetic [Ultra-Thin II Ins Pen [place]] 29 gauge x 1/2 needle See Rx Instructions .ROUTE .MEDSUPPLY Qty: 400 3RF Rx Instructions: test four times daily E11.39 potassium chloride 20 mEq tablet,ER particles/crystals 20 meq PO BID Qty: 180 4RF rosuvastatin [Crestor] 5 mg tablet 5 mg PO DAILY Qty: 90 4RF tramadol 50 mg tablet 50 - 100 mg PO TID PRN (Reason: pain) Qty: 120 5RF Rx Instructions: 30 day supply. Shingrix (PF) 50 mcg/0.5 mL suspension for reconstitution 0.5 ml IM ONCE Qty: 1 1RF Rx Instructions: as a single dose. Repeat in 2 months triamcinolone acetonide 0.1 % cream See Rx Instructions .ROUTE .COMPLEX Qty: 454 6RF Dose Instruction: APPLY TO AFFECTED AREA TWICE DAILY NEEDED FOR PSORIASIS Rx Instructions: APPLY TO AFFECTED AREA TWICE DAILY NEEDED FOR PSORIASIS diphth,pertus(acell),tetanus 2.5-8-5 Lf-mcg-Lf/0.5mL syringe 0.5 ml IM ONCE Qty: 0.5 0RF Rx Instructions: as a single dose Slow-Mag 71.5 mg tablet,delayed release (DR/EC) 71.5 mg PO DAILY Qty: 90 4RF (DME) BD Insulin Syringe 1 mL 26 x 1/2 syringe 1 ea Sub-Q AC & HS Qty: 360 3RF Rx Instructions: DX:E11.40 B/D ECLIPSE 30G X 0.5/ ac and hs/25 g aspirin [Aspirin Low-Strength] 81 MG tablet,chewable 81 mg PO DAILY acetaminophen [Tylenol Extra Strength] 500 MG tablet 2,000 mg PO Q4H PRN Patient Comments: 05/04/21 PT states she took 500mg HS 05/03/21 (DME) blood-glucose meter kit See Dose Instructions .ROUTE .MEDSUPPLY Qty: 1 0RF Dose Instruction: As directed Rx Instructions: As directed (DME) lancets [OneTouch Delica Lancets] 33 gauge misc 1 ea Intradermal QID Qty: 300 12RF Rx Instructions: DX:E11.40; TID TESTING; Thera-Gesic 15-1 % cream 1 applic Topical BID Qty: 90 4RF calcium carbonate-vit D3-min 600 mg calcium- 400 unit tablet 1 tab PO BID Qty: 180 5RF Rx Instructions: ok to dispense stock calcium/Vitamin d3 (DME) blood sugar diagnostic Strip 1 strip Miscellaneous QID Qty: 300 12RF Rx Instructions: DX:E11.40; TID TESTING; (DME) Airzone Peak Flow Meter 1 EACH device 1 ea Miscellaneous Q4H PRN Qty: 1 0RF Patient Comments: pt .does not use No Action lorazepam [Ativan] 1 mg tablet 1 mg PO BID PRN (Reason: panic attack) Qty: 7 0RF Rx Instructions: USE SPARINGLY Discharge Instructions Additional Instructions: Please read all of the information that accompanies these instructions. You were seen in the emergency department for your cough and shortness of breath. Your x-ray showed no sign of pneumonia. You likely have bronchitis. Please schedule an appointment with your primary care provider later this week. Please return to the emergency department if if you develop fevers or any worsening shortness of breath. Medical Decision Making This is a chronically ill but overall well-appearing hypertensive but not tachycardic nor febrile 67-year-old female with 3 to 4 days of cough and phlegm concerning for pneumonia versus bronchitis. She is not a smoker and has no prolonged expiratory phase to suggest exacerbation of reactive airway disease. She is not recently postoperative and has never had a PE nor DVT. Given that she is not tachycardic nor hypoxic my suspicion for PE is low. Patient is not vaccinated against COVID so we will swab for COVID RSV and influenza. She has had no recent sick contacts. If her x-ray is negative for pneumonia we will defer lab work at this point time given no nausea nor vomiting so my suspicion for acute electrolyte abnormality is low. No chest pain to suggest ACS so will defer ECG at this point time. No pain out of proportion to suggest necrotizing soft tissue infection. I considered sepsis however the vital signs are not consistent with sepsis and patient denies fevers at home. 3:15 PM Patient's respiratory viral swab was negative for COVID, influenza a and B, and RSV. On my preliminary review of the patient's single view radiograph there are no acute abnormalities. The film did appear rotated. We will await radiology formal read. 3:35 PM Patient had no signs of pneumonia on chest x-ray. Given her cough she most likely has bronchitis. Will advise return to the ED if she develops fevers worsening cough or worsening shortness of breath. I have asked health community director Ayaka to have the patient seen within the next week by her primary care provider. Her chest x-ray was read as showing concern for bibasilar atelectasis. She is certainly at risk for pneumonia given her morbid obesity. We will proceed with empiric trial of expectant outpatient management. I discharged the patient with a short course of guaifenesin to use for symptomatic relief. HPI General Date/Time Provider Initiated Documentation: 04/07/23 14:05. HPI Narrative: This is a 67-year-old female with a history of obesity in the emergency department in setting of cough with shortness of breath. Patient notes that for the past 3 to 4 days she has had cough productive of brown and green phlegm. She says that she has been eating well and denies any vomiting. She has had no fevers. No recent travel nor sick contacts. She lives with her sister and her granddaughter. She is not vaccinated against COVID. She denies routine tobacco, ethanol, and illicits. She denies chest pain abdominal pain dysuria and frequency. No recent falls. Related Data Home Medications Medication Instructions Recorded Confirmed aspirin 81 mg chewable tablet 81 mg PO DAILY 08/25/14 02/15/23 (Aspirin Low-Strength) peak flow meter (AsicAheadne Peak Flow #1 ea 10/16/15 02/15/23 Meter) acetaminophen 500 mg tablet 2,000 mg PO Q4H PRN 01/15/18 02/15/23 (Tylenol Extra Strength) blood-glucose meter #1 ea 07/08/18 02/15/23 lancets 33 gauge (OneTouch Delica #300 ea 11/24/20 02/15/23 Lancets) methyl salicylate 15 %-menthol 1 % 1 applic topical BID #90 grams 01/10/21 02/15/23 topical cream (Thera-Gesic) calcium carb-vit D3-minerals 600 1 tab PO BID #180 tabs 01/14/21 02/15/23 mg calcium-400 unit tablet blood sugar diagnostic #300 ea 11/21/21 02/15/23 albuterol sulfate 90 mcg/actuation 2 puff inhalation QID #18 grams 02/15/23 02/15/23 aerosol inhaler allopurinol 100 mg tablet 100 mg PO DAILY #90 tab-caps 02/15/23 02/15/23 citalopram 20 mg tablet (Celexa) 20 mg PO DAILY #90 tab-caps 02/15/23 02/15/23 diphth,pertus(acell),tetanus 2.5 0.5 ml IM ONCE #0.5 mL 02/15/23 02/15/23 Lf unit-8 mcg-5 Lf/0.5mL IM syringe furosemide 40 mg tablet (Lasix) 40 mg PO BID #180 tab-caps 02/15/23 02/15/23 gabapentin 600 mg tablet See Rx Instructions PO DIRECTED 02/15/23 02/15/23 (Neurontin) #270 tab-caps insulin glargine 100 unit/mL 90 unit (0.9 mL) subcut HS #10 02/15/23 02/15/23 subcutaneous solution (Lantus vials U-100 Insulin) insulin syringe-needle U-100 1 mL ##360 02/15/23 02/15/23 26 x 1/2 (BD Insulin Syringe) losartan 100 mg tablet (Cozaar) 100 mg PO DAILY #90 tab-caps 02/15/23 02/15/23 magnesium chloride 71.5 mg 71.5 mg PO DAILY #90 tabs 02/15/23 02/15/23 (magnesium chloride) tablet,delayed release (Slow-Mag) metformin 1,000 mg tablet 1,000 mg PO DAILY #90 tab-caps 02/15/23 02/15/23 metoprolol succinate 50 mg 50 mg PO DAILY #90 tab-caps 02/15/23 02/15/23 tablet,extended release 24 hr (Toprol XL) naloxone 4 mg/actuation nasal 4 mg NS PRN #2 ea 02/15/23 02/15/23 spray (Narcan) nystatin 100,000 unit/gram topical 1 applic topical BID PRN rash #180 02/15/23 02/15/23 powder (Nystop) grams pen needle, diabetic 29 gauge x #400 ea 02/15/23 02/15/23 1/2 (Ultra-Thin II Insulin Pen [place]) pen needle, diabetic 31 gauge x #100 ea 02/15/23 02/15/23/16 (Comfort EZ Pen [place]) potassium chloride 20 mEq 20 meq PO BID #180 tab-caps 02/15/23 02/15/23 tablet,extended release(part/cryst) rosuvastatin 5 mg tablet (Crestor) 5 mg PO DAILY #90 tab-caps 02/15/23 02/15/23 tramadol 50 mg tablet 50 - 100 mg PO TID PRN pain #120 02/15/23 02/15/23 tabs triamcinolone acetonide 0.1 % See Rx Instructions .Route 02/15/23 02/15/23 topical cream .COMPLEX #454 grams varicella-zoster glycoE [id number] 0.5 ml IM ONCE #1 ea 02/15/23 02/15/23 adj(PF) 50 mcg/0.5 mL IM susp, kit (Shingrix (PF)) lorazepam 1 mg tablet (Ativan) 1 mg PO BID PRN panic attack #7 03/21/23 tabs guaifenesin 600 mg tablet, 600 mg PO Q12H PRN #7 tabs 04/07/23 extended release 12 hr (Mucinex) Previous Rx's Medication Instructions Recorded peak flow meter (Airzone Peak Flow #1 ea 10/16/15 Meter) blood-glucose meter #1 ea 07/08/18 lancets 33 gauge (OneTouch Delica #300 ea 11/24/20 Lancets) methyl salicylate 15 %-menthol 1 % 1 applic topical BID #90 grams 01/10/21 topical cream (Thera-Gesic) calcium carb-vit D3-minerals 600 1 tab PO BID #180 tabs 01/14/21 mg calcium-400 unit tablet blood sugar diagnostic #300 ea 11/21/21 albuterol sulfate 90 mcg/actuation 2 puff inhalation QID #18 grams 02/15/23 aerosol inhaler allopurinol 100 mg tablet 100 mg PO DAILY #90 tab-caps 02/15/23 citalopram 20 mg tablet (Celexa) 20 mg PO DAILY #90 tab-caps 02/15/23 diphth,pertus(acell),tetanus 2.5 0.5 ml IM ONCE #0.5 mL 02/15/23 Lf unit-8 mcg-5 Lf/0.5mL IM syringe furosemide 40 mg tablet (Lasix) 40 mg PO BID #180 tab-caps 02/15/23 gabapentin 600 mg tablet See Rx Instructions PO DIRECTED 02/15/23 (Neurontin) #270 tab-caps insulin glargine 100 unit/mL 90 unit (0.9 mL) subcut HS #10 02/15/23 subcutaneous solution (Lantus vials U-100 Insulin) insulin syringe-needle U-100 1 mL ##360 02/15/23 26 x 1/2 (BD Insulin Syringe) losartan 100 mg tablet (Cozaar) 100 mg PO DAILY #90 tab-caps 02/15/23 magnesium chloride 71.5 mg 71.5 mg PO DAILY #90 tabs 02/15/23 (magnesium chloride) tablet,delayed release (Slow-Mag) metformin 1,000 mg tablet 1,000 mg PO DAILY #90 tab-caps 02/15/23 metoprolol succinate 50 mg 50 mg PO DAILY #90 tab-caps 02/15/23 tablet,extended release 24 hr (Toprol XL) naloxone 4 mg/actuation nasal 4 mg NS PRN #2 ea 02/15/23 spray (Narcan) nystatin 100,000 unit/gram topical 1 applic topical BID PRN rash #180 02/15/23 powder (Nystop) grams pen needle, diabetic 29 gauge x #400 ea 02/15/23 1/2 (Ultra-Thin II Insulin Pen [place]) pen needle, diabetic 31 gauge x #100 ea 02/15/23 5/16 (Comfort EZ Pen [place]) potassium chloride 20 mEq 20 meq PO BID #180 tab-caps 02/15/23 tablet,extended release(part/cryst) rosuvastatin 5 mg tablet (Crestor) 5 mg PO DAILY #90 tab-caps 02/15/23 tramadol 50 mg tablet 50 - 100 mg PO TID PRN pain #120 02/15/23 tabs triamcinolone acetonide 0.1 % See Rx Instructions .Route 02/15/23 topical cream .COMPLEX #454 grams varicella-zoster glycoE [id number] 0.5 ml IM ONCE #1 ea 02/15/23 adj(PF) 50 mcg/0.5 mL IM susp, kit (Shingrix (PF)) lorazepam 1 mg tablet (Ativan) 1 mg PO BID PRN panic attack #7 03/21/23 tabs guaifenesin 600 mg tablet, 600 mg PO Q12H PRN #7 tabs 04/07/23 extended release 12 hr (Mucinex) Allergies Allergy/AdvReac Type Severity Reaction Status Date / Time triamcinolone Allergy Mild rash Verified 02/15/23 10:58 hydromorphone AdvReac Unknown GOT Verified 02/15/23 10:58 REALLY DEMENTED General Stated Complaint: RespSymp FRANCO: 3 PFSH All Active Problems (Updated 04/07/23 @ 15:36 by Wilberto Boucher MD) Cough (Acute) Increased sputum production (Acute) Bronchitis (Acute) Shortness of breath (Acute) Grief at loss of child (Acute) Encounter for screening colonoscopy (Acute) Dupuytren's contracture of left hand (Acute) S/P partial polypectomy: 04/20/2021 Chest x-ray abnormality (Acute) Polyneuritis (Acute) Osteoarthritis of right knee (Chronic) Injected: 03/27/2018, 11/25/2018, 02/10/2019 Positive urine drug screen (Acute ~07/2018) NO oxycodone was detected. Called [facility] who said given her BMI it should have been detected for 72 hours. At next visit I said I would NOT rx opiates and stimulants as she broke the narcotic contract Umbilical hernia (Chronic 07/29/13) Sleep apnea (Chronic 01/09/17) Shoulder pain (Chronic) right shoulder injury 1997; W/C; reinjured 11/02 (pt. family pulled arm); adhesive capsulitis; MRI 1999=DJD; biceps tendonitis; adhesive capsulitis; chronic Percocet use; NARCOTIC CONTRACT Psoriasis (Chronic) Plantar callosity (Chronic 04/09/17) Peripheral venous insufficiency (Chronic) edema Osteopenia (Chronic 12/23/08) Osteoarthritis of left knee (Chronic 06/29/16) Injected: 02/25/2018, 11/25/2018, 02/10/2019 Neuropathy (Chronic) in the feet Leukocytosis, unspecified (Chronic) 01/05/12 (SEE SCANNED)NEGATIVE FOR THE BCR-ABL TRANSCRIPT Saw hematology @ [facility] [place] Increased body mass index (Chronic) Hyperlipidemia (Chronic 04/08/13) Gout (Chronic 04/08/13) Generalized osteoarthrosis (Chronic) C-spine MRI 2000=C3-4 DJD; otherwise normal Fatigue (Chronic 08/01/16) Dupuytren's contracture of right hand (Chronic 02/25/18) Status post partial palmar fasciectomy on 05/13/2021 (right ring finger); 02/11/2019 Depressive disorder (Chronic) Chronic pain of right knee (Chronic 02/26/18) Cataract (Chronic) 02/09/16; [facility]; [facility] 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 Ramirez, OD Uses insulin Essential hypertension (Chronic 07/28/13) Chronic pain disorder (Chronic) Medical History (Updated 04/07/23 @ 15:36 by Wilberto Boucher MD) DUB (dysfunctional uterine bleeding) 08/20/13 NEG ENDO BX Dysfunctional uterine bleeding (08/20/13) Right rotator cuff tendonitis Injected 12/20/2018 Spondylolisthesis 03/07 LUMBAR XRAY: GRADE I SPONDYLOLISTHESIS AT L5-S1 Surgical History (Updated 05/13/21 @ 10:49 by Sarah Love) Abdominal hysterectomy Partial section (~1979) Cholecystectomy (~1994) H/O section History of section History of hysterectomy (07/29/13) Hx of hysterectomy 07/29/13 S/P cholecystectomy Status post cholecystectomy Family History Mother Essential hypertension Hyperlipidemia Father , age 92 Heart disease Stroke Sister Cancer Brother , age 43 Cancer Brother , age 18 Neoplasm KIDNEY Paternal Grandfather , age 70 Essential hypertension Heart disease Maternal Grandmother , age 85 Cancer Paternal Grandmother , age 84 No problems noted. Brother No problems noted. Social History (Updated 02/16/23 @ 15:04 by Janelle Beatty) Smoking/Tobacco Use Status: Never Second Hand Exposure: Yes Smoking risk assessment performed?: Yes Alcohol Intake: never Drug use: Never Substance use type: does not use Caregiver/Support person: No Household members: family, children and other Details: mother, 2 nephews, sister, grandson, son, granddaughter, [id number] Housing: house Communication Needs: None Do you need help understanding health information?: Never current occupation: NURSE Pets and animals: Yes Pets and animals: cat(s) and dog(s) Sexually active: Yes Do you think of yourself as: straight/heterosexual Current gender identity: female What is your relationship status?: How often do you talk on the phone with friends or family?: three or more times per week How often do you get together with friends or relatives?: three or more times per week How often do you attend bahai or buddhist services?: 4 or more times per year Do you belong to any clubs or organized social groups?: no Panel score (0-1 are the most socially isolated patients): 2 Margaret/Religious: Buddhism Special margaret needs: No (Buddhism last rit) Seatbelt use: always Helmet use: Yes Helmet use: sometimes Drive intox or ride w/intox transit mixer driver: No Do you feel safe at home: Yes Do you feel safe in your relationship?: No Exam Narrative Exam Narrative: General: Chronically ill-appearing in no acute distress speaking in complete sentences. Head: Normocephalic, atraumatic. Eye: Pupils equal, round reactive to light. Extraocular eye movements intact. No conjunctival injection. No scleral icterus. Ear, nose, mouth, throat: Grossly normal inspection. Normal voice, handling secretions normally. Neck: Trachea midline. Cardiovascular: Well-perfused distal extremities. Regular rate and rhythm. Respiratory: Nonlabored respiration. Diminished breath sounds bilaterally. Gastrointestinal: Nondistended abdomen. Soft nontender. Musculoskeletal: No edema. Moving all 4 extremities spontaneously. Skin: Normal for age and race, grossly normal temperature and turgor. No acute rash. Neurologic: Alert and appropriate, no apparent acute deficits. Psychiatric: Mood and manner are appropriate. Grooming and personal hygiene are appropriate. Course Vital Signs Vital signs: Vital Signs Temperature 36.4 C L 04/07/23 13:57 Pulse 67 04/07/23 13:57 Respiratory Rate 18 04/07/23 13:57 Blood Pressure 179/68 H 04/07/23 13:57 Pulse Oximetry 97 04/07/23 13:57 Temperature 36.4 C L 04/07/23 13:57 Temperature Source Skin 04/07/23 13:57 Pulse 67 04/07/23 13:57 Respiratory Rate 18 04/07/23 13:57 Blood Pressure 179/68 H 04/07/23 13:57 Blood Pressure Position Sitting 04/07/23 13:57 Pulse Oximetry 97 04/07/23 13:57 Oxygen Delivery Method Room Air 04/07/23 13:57 Oxygen Flow Rate 0 04/07/23 13:57 Pain Level 0 04/07/23 13:57
[2023-04-07 15:12] LABS: COVID-19 PCR Negative (Negative); Influenza A PCR Negative (Negative); Influenza B PCR Negative (Negative); RSV PCR Negative (Negative)
[2023-04-07 15:14] LABS: Source Nasopharynx
[2023-04-07 15:15] VITALS: BP 144/98; PULSE 68; RESP 18; O2SAT 95
--- NOTE | 2023-04-07 15:24 | NUR.NOTE ---
Nursing Note:Pt awake, working on cell phone, VSS, pt denies pain, occasional cough noted. Pt requested commode, voided and had very large soft, brown stool. Pt requesting fluids, plan to f/u with provider. Pt awaiting disposition plan.
--- NOTE | 2023-04-07 15:25 | DI.VRAD_ITS ---
PROCEDURE INFORMATION: Exam: XR Chest Exam date and time: 04/07/2023 3:05 PM Age: 67 years old Clinical indication: Shortness of breath TECHNIQUE: Imaging protocol: Radiologic exam of the chest. Views: 1 view. COMPARISON: CR XR CHEST 2V PA LATERAL 03/03/2021 1:02 PM FINDINGS: Lungs: Mild left lung base atelectasis. There is some minimal increased lung base markings at the left lower lung medially. There may be some minimal airspace changes at the right lung base medially. Pleural spaces: Unremarkable. No pleural effusion. No pneumothorax. Heart/Mediastinum: Cardiomegaly. Bones/joints: Unremarkable. IMPRESSION: Probable bibasilar atelectasis. No definite early consolidation. Dictated and Authenticated by: Kemi Cline MD. Ordering:SHITAL Ladd MD
[2023-04-07 15:41] VITALS: BP 132/73; PULSE 68; RESP 18; TEMP 37.1; O2SAT 96
--- NOTE | 2023-04-07 16:25 | NUR.NOTE ---
Nursing Note: Referral faxed to PCP for cough,bronchitis/to be seen within 1 week.
== END 2023-04-07 15:48 | disposition home or self-care (01) ==
PROVIDERS: Emergency Provider Emergency Medicine; PCP Family Medicine
DX: J40 Bronchitis, not specified as acute or chronic (principal); Z28.310 Unvaccinated for COVID-19; E66.01 Morbid (severe) obesity due to excess calories
CPT/HCPCS: 87637; 99284; 71045

== ENCOUNTER → 2023-07-19 02:05 | Outpatient (CLI) | payer MEDICARE, SELFPAY ==
--- NOTE | 2023-07-19 12:18 | DI.US_ITS ---
APPROVED REPORT EXAM: Comprehensive 2D, Doppler, and color-flow Echocardiogram Patient Location: Out-Patient Architectural Project Captain: Shanique Sims RDCS (AE) Indications: SOB, Sleep apnea Other Information Study Quality: Poor. Technically limited study due to body habitus, inability to position patient exa m done with patient in sitting position.. Conclusion Technically difficult and suboptimal study Left ventricle appears grossly normal and wall thickness size and systolic function Right atrium and right ventricle are not well visualized Left atrium is not well visualized. Within the limits of the study no significant valvular disease was identified Wall motion Left Ventricle The left ventricle is normal size. The overall left ventricular systolic function appears normal. Mary Jane hnically limited parasternal imaging. There is normal left ventricular wall thickness. Regional wall motion is not well visualized but grossly normal. There is no ventricular septal defect visualized. L VEF is 55%. Right Ventricle Right ventricle is not well visualized. Right ventricular systolic function could not be assessed. Atria Left atrium is not well visualized. Right atrium is not well visualized. The interatrial septum is in tact with no evidence for an atrial septal defect. Aortic Valve The aortic valve is normal in structure. Aortic valve is probably trileaflet. There is no aortic valv ular stenosis. Mitral Valve The mitral valve is normal in structure. No evidence of mitral valve stenosis. Trace mitral regurgita tion. Tricuspid Valve The tricuspid valve is normal in structure. There is no tricuspid valve stenosis. Trace tricuspid reg urgitation. Unable to assess PA pressure. Pulmonic Valve Pulmonic valve is not well visualized. Great Vessels The aortic root is normal in size. The ascending aorta is borderline. Aortic arch is not well visuali zed. IVC is normal in size and collapses >50% with inspiration. Pericardium There is no pericardial effusion. 2D Dimensions IVSD d PLAX 0.95 cm F: 0.6-1.0 Ao Root d 2.77 cm F: 2.7 - 3.3 LVPW d PLAX 0.90 cm F: 0.6 - 1.0 Ao Asc Diam d 3.31 cm F: 2.3 - 3.1 LVID d PLAX 4.74 cm F: 3.8 - 5.2 LVDs 3.36 cm F: 2.2 - 3.5 LV EF Teichholz 55.8 % FS 29.08 % LV EDV (Teich) 104.2 mL LV ESV (Teich) 46.0 mL LV Diastology MV E' medial 0.050 (>0.07 m/s) MV E Vmax 0.57 (0.4-1.3 m/s) MV E/E' MED 11.39 (<14) MV A Vmax 0.55 (0.4-1.3 m/s) MV E' lateral 0.054 (>0.1 m/s) E/A Ratio 1.0 MV E/E' LAT 10.54 (<14) MV E' Average 0.052 m/s MV E/E'(average) 10.95 Aortic Valve AoV Vmax 1.05 m/s LVOT Vmax 0.86 m/s AoV Peak Grad 4.4 mmHg LVOT Peak Grad 3.0 mmHg AoV Area (Vmax) 2.51 cm2 LVOT VTI 0.178 m AoV VTI 0.233 m LVOT Mean Grad 1.9 mmHg AoV Mean Serjio. 0.77 m/s LVOT SV 54.57 mL AoV Mean Grad 2.7 mmHg LVOT Diam s 1.95 cm AoV Area (VTI) 2.34 cm2 Velocity Ratio 0.82 Mitral Valve MV DT 354 (160-240 msec) MV Vmax TIPS 0.65 m/s MV Mean Grad 0.7 (<2mmHg) MV VTI 0.236 m Pulmonary Valve PV Vmax 1.61 (0.5-1.5 m/s) RVOT Vmax 1.14 m/s PV Peak Grad 10.4 mmHg RVOT Peak Gr. 5.2 mmHg PV Mean Serjio 1.06 m/s RVOT VTI 0.231 m PV Mean Grad 5.2 mmHg RVOT Mean Gr. 3.5 mmHg
--- NOTE | 2023-07-19 13:20 | DI.MAMMO_ITS ---
Exam(s) MAMMO SCREENING EXAM: MAMMO SCREENING CLINICAL HISTORY: screening,z12.39 TECHNIQUE: Bilateral full field digital CC and MLO mammographic images were obtained with 3D tomosyn thesis and utilizing computer aided detection (CAD). COMPARISON: Available for comparison. FINDINGS: Masses/Architectural Distortion: None seen. Microcalcifications: No suspicious pleomorphic-type are seen. Skin Thickening/Nipple Retraction: None. IMPRESSION: 1. No significant interval change with no specific features of malignancy noted. 2. Unless there is more urgent need, screening mammography is recommended, as per [employer] guidelines. BI-RADS Category 1 - Negative Breast Density - Category B - Scattered areas of fibroglandular density Breast density category C or D implies that the patient has dense breast tissue. Dense breast tissue is very common and is not abnormal but dense breast tissue can make it harder to find cancer on a ma mmogram. Also, dense breast tissue may increase their breast cancer risk. This information about the result of the mammogram report was provided to the patient to raise their awareness. Use this report when you speak with the patient about their risks for breast cancer, which includes their family hist ory. At that time, you may recommend for more screening tests (Ultrasound or MRI) as they might be us eful based on their risk. A negative radiographic report should not delay biopsy if a dominant or clinically suspicious mass is present. Up to ten percent of cancers are not identified on mammography. A negative report may reinforce clinical impression. Adenosis and dense breasts may obscure an underlying neoplasm. False positive reports average 6 to 10%. Patient will receive a letter notifying them of these results.
== END ==
PROVIDERS: PCP Family Medicine; Visit Provider Family Medicine
DX: Z12.39 Encounter for other screening for malignant neoplasm of breast (principal); G47.30 Sleep apnea, unspecified; R06.02 Shortness of breath
CPT/HCPCS: 77063; 77067; 93306

== ENCOUNTER 2024-03-25 12:53 | Outpatient (REF) | payer OTHER, SELFPAY ==
[2024-03-25 21:46] LABS: *AMPHETAMINES SCREEN URINE Negative (Negative); *BARBITURATES SCREEN URINE Negative (Negative); *BENZODIAZEPINES SCREEN URINE Negative (Negative); Cannabinoids THC Negative (Negative); Cocaine Screen,Urine Negative (Negative); METHADONE URINE SCREEN Negative (Negative); OPIATES URINE SCREEN Negative (Negative); Tricyclic Antidepressants Negative (Negative)
[2024-03-25 21:51] LABS: COMMENT (LAB VIEW ONLY) 31.78 mg/dL; Microalb ug/mg Crea 6.6 ug/mg Cr
== END 2024-03-25 12:54 | disposition home or self-care (01) ==
LOC: LBN 12:53
PROVIDERS: PCP Family Medicine; Visit Provider Family Medicine
DX: G89.4 Chronic pain syndrome (principal)
CPT/HCPCS: 80307; 82043; 82570

== ENCOUNTER 2025-01-13 00:19 | Outpatient (CLI) | payer MEDICARE, SELFPAY ==
--- NOTE | 2025-01-13 06:15 | DI.US_ITS ---
Exam(s) US ABDOMEN LIMITED EXAM: US ABDOMEN LIMITED CLINICAL HISTORY: RUQ pain, s/p cholecystectomy,r10.11 TECHNIQUE: Ultrasound abdomen performed using standard protocol. COMPARISON: No exams were available for comparison FINDINGS: LIVER: Enlarged at 18 cm in length. Mildly increased echogenicity consistent with mild hepatic steat osis. No focal liver lesions are seen. GALLBLADDER: Cholecystectomy BILIARY SYSTEM: No intrahepatic or extrahepatic biliary ductal dilation. RIGHT KIDNEY: Normal size. No evidence of renal calculi. No evidence of hydronephrosis. No suspicious renal mass. No cyst identified. PANCREAS: Normal where visualized. ABDOMINAL AORTA AND IVC: Visualized portions normal caliber. ASCITES: None seen. IMPRESSION: The liver is enlarged and shows mild hepatic steatosis. Status post cholecystectomy. No biliary dilatation. DATA REPOSITORY:
== END 2025-01-13 00:39 ==
PROVIDERS: PCP Family Medicine; Visit Provider Family Medicine
DX: R10.11 Right upper quadrant pain (principal)
CPT/HCPCS: 76705

== ENCOUNTER 2025-01-13 09:11 | Outpatient (CLI) | payer MEDICARE, SELFPAY ==
[2025-01-13 09:16] LABS: HCT 44.5 % (36.0-46.0); HGB 15.2 g/dL (11.2-15.7); MCH 30.5 pg (27.0-33.0); MCHC 34.2 % (32.0-36.0); MCV 89 fL (80-95); MPV 9.6 fL (8.0-11.0); Platelet Count 380 10^3/uL (130-400); RBC 4.99 10^6/uL (3.93-5.22); RDW 13.1 % (11.7-14.6); RDW-SD 42.8 fL; WBC 15.02 10^3/uL (4.4-10.8)
[2025-01-13 09:39] LABS: ALT 19 U/L (14-59); AST 14 U/L (15-37); Albumin 3.2 g/dL (3.4-5.0); Alkaline Phosphatase 94 U/L (46-116); Anion Gap 8.1 mmol/L (3-11); BUN 22 mg/dL (7-18); Bilirubin, Total 0.5 mg/dL (0.2-1.0); CO2 31.9 mmol/L (21.0-32.0); CREATININE 1.3 mg/dL (0.55-1.02); Calcium 9.2 mg/dL (8.5-10.1); Calculated LDL 44 mg/dL (<100); Chloride 102 mmol/L (98-107); Cholesterol 131 mg/dL (<200); Estimated GFR 44.24 (mL/min/1.73m2); Glucose 186 mg/dL (74-106); HDL Cholesterol 57 mg/dL (>or=50); Sodium 142 mmol/L (136-145); Total Protein 7.8 g/dL (6.4-8.2); Triglyceride 153 mg/dL (<150)
== END 2025-01-13 09:12 | disposition home or self-care (01) ==
PROVIDERS: PCP Family Medicine; Visit Provider Family Medicine
DX: I10 Essential (primary) hypertension (principal); R10.9 Unspecified abdominal pain
CPT/HCPCS: 36415; 80053; 80061; 85027

== ENCOUNTER 2025-01-22 13:50 | Outpatient (CLI) | payer MEDICARE, SELFPAY ==
--- NOTE | 2025-01-22 11:00 | DI.RAD_ITS ---
Exam(s) XR KNEE LT 1V XR STANDING ALIGNMENT XR KNEE RT 1V EXAM: XR STANDING ALIGNMENT CLINICAL HISTORY: OA RIGHT KNEE. TECHNIQUE: 2D digital imaging was performed. Standing AP views were performed from the pelvis throu gh the ankles. COMPARISON: CR KNEES BILAT AP PA UP LATS from 03/27/2018 CR XR KNEE LT 1V from 01/22/2025 CR XR KNEE RT 1V from 01/22/2025 FINDINGS: BONES: No acute fracture is present. No bony destructive lesion is seen. Leg length discrepancy: No significant overall leg length discrepancy. JOINTS: Knees: There are severe degenerative changes of the medial femoral tibial joint space of both knees, with a [id number] appearance. There is prominent periarticular spurring medially as well a s at both patellofemoral joints. There is a loose body in the left suprapatellar joint space. There is a question of bilateral posterior joint space loose bodies.. The ankle joints are unremarkable. The hip joints are unremarkable. SOFT TISSUE: Vascular calcifications. Chronic calcification in the anterior lower left leg. IMPRESSION: Severe degenerative changes of both knees. No significant leg length discrepancy. DATA REPOSITORY: RADIATION DOSE DELIVERED:
== END 2025-01-22 13:51 | disposition home or self-care (01) ==
LOC: DIORS 13:50
PROVIDERS: PCP Family Medicine; Referring Provider Family Medicine; Visit Provider Student in an Organized Health Care Education/Training Program
DX: M17.11 Unilateral primary osteoarthritis, right knee (principal); M17.12 Unilateral primary osteoarthritis, left knee; E11.9 Type 2 diabetes mellitus without complications
CPT/HCPCS: 99214; 73560; 77073

== ENCOUNTER 2025-04-13 17:24 | Outpatient (REF) | payer MEDICARE, SELFPAY ==
[2025-04-13 13:59] LABS: Microalb ug/mg Crea 9.4 ug/mg Cr
[2025-04-13 14:00] LABS: *AMPHETAMINES SCREEN URINE Negative (Negative); *BARBITURATES SCREEN URINE Negative (Negative); *BENZODIAZEPINES SCREEN URINE Negative (Negative); Cannabinoids THC Negative (Negative); Cocaine Screen,Urine Negative (Negative); METHADONE URINE SCREEN Negative (Negative); OPIATES URINE SCREEN Negative (Negative)
[2025-04-13 14:02] LABS: Tricyclic Antidepressants Negative (Negative)
== END 2025-04-13 17:25 | disposition home or self-care (01) ==
LOC: LBN 17:24
PROVIDERS: PCP Family Medicine; Visit Provider Family Medicine
DX: E11.9 Type 2 diabetes mellitus without complications (principal); G89.4 Chronic pain syndrome
CPT/HCPCS: 80307; 82043; 82570

== ENCOUNTER 2025-04-30 11:47 | Outpatient (CLI) | payer MEDICARE, SELFPAY ==
--- NOTE | 2025-04-30 11:45 | RT.EKG_ITS ---
APPROVED REPORT Exam: Resting ECG Reason for Exam: Bilateral knee replacement scheduled Patient Location: O HR:71 bpm ECG Measurements Heart Rate 71 AXIS IL 215 P -23 QRSd 94 QRS -29 QT 412 T 12 QTc 448 Conclusion Sinus rhythm...normal P axis, V-rate 50- 99 Borderline prolonged IL interval...IL >212, V-rate 50- 90 Left ventricular hypertrophy...multiple voltage criteria
== END 2025-04-30 11:48 | disposition home or self-care (01) ==
LOC: DI.CM 11:48
PROVIDERS: PCP Family Medicine; Visit Provider Family Medicine
DX: Z01.818 Encounter for other preprocedural examination (principal); I42.2 Other hypertrophic cardiomyopathy
CPT/HCPCS: 93010

== ENCOUNTER 2025-05-04 03:31 | Outpatient (CLI) | payer MEDICARE, SELFPAY ==
[2025-05-04 14:06] LABS: HCT 47.7 % (36.0-46.0); HGB 15.7 g/dL (11.2-15.7); MCH 29.5 pg (27.0-33.0); MCHC 32.9 % (32.0-36.0); MCV 90 fL (80-95); MPV 10.0 fL (8.0-11.0); Platelet Count 387 10^3/uL (130-400); RBC 5.32 10^6/uL (3.93-5.22); RDW 12.8 % (11.7-14.6); RDW-SD 41.8 fL; WBC 15.50 10^3/uL (4.4-10.8)
[2025-05-04 14:18] LABS: Anion Gap 7.9 mmol/L (3-11); BUN 29 mg/dL (7-18); CO2 30.1 mmol/L (21.0-32.0); Calcium 10.0 mg/dL (8.5-10.1); Chloride 102 mmol/L (98-107); Estimated GFR 48.70 (mL/min/1.73m2); Glucose 139 mg/dL (74-106); Potassium 3.8 mmol/L (3.5-5.1); Sodium 140 mmol/L (136-145)
== END 2025-05-04 03:32 | disposition home or self-care (01) ==
LOC: LBO 03:31
PROVIDERS: PCP Family Medicine; Visit Provider Student in an Organized Health Care Education/Training Program
DX: M17.11 Unilateral primary osteoarthritis, right knee (principal); M17.12 Unilateral primary osteoarthritis, left knee; Z01.818 Encounter for other preprocedural examination
CPT/HCPCS: 80048; 85027

== ENCOUNTER 2025-05-12 16:32 | Observation (INO) | payer MEDICARE, SELFPAY ==
[2025-05-12] VITALS (38 sets, daily range): BP systolic 96–163; BP diastolic 40–132; PULSE 58–646; RESP 13–19; TEMP 36.2–37.3; O2SAT 90–98; BMI 50.9
[2025-05-12] MEDS: Celecoxib 200 MG CAP 400 MG PO (10:47)
[2025-05-12] MEDS: Acetaminophen 500 MG TAB 1000 MG PO ×4 (10:48→20:58)
[2025-05-12] MEDS: Gabapentin 300 MG CAP PO (10:53)
--- NOTE | 2025-05-12 11:11 | W.ANESPRE ---
General Info Date of Service Date Performed: 05/12/25 Height: 5 ft 1.25 in Weight: 123.3 kg Body Mass Index (BMI): 50.9 Surgical Procedure: Operation Date: 05/12/25 12:50 Proposed Procedure Side Surgeon p Knee Total Arthroplasty Bilateral Bilateral Tyler Stubbs MD Actual Procedure Side Surgeon p Knee Total Arthroplasty Bilateral Bilateral Tyler Stubbs MD Pre-Op Diagnosis Post-Op Diagnosis (1) Osteoarthritis of right knee: (2) Osteoarthritis of left knee: Meds Allergies and Home Medications Allergies Allergy/AdvReac Type Severity Reaction Status Date / Time triamcinolone Allergy Mild rash Verified 05/12/25 10:38 hydromorphone AdvReac Unknown GOT Verified 05/12/25 10:38 REALLY DEMENTED Home Medication ?Medication ?Instructions ?Recorded aspirin 81 mg chewable tablet 81 mg PO DAILY 08/25/14 (Aspirin Low-Strength) peak flow meter ([employer] Peak Flow #1 ea 10/16/15 Meter) acetaminophen 500 mg tablet 2,000 mg PO Q4H PRN 01/15/18 (Tylenol Extra Strength) methyl salicylate 15 %-menthol 1 % 1 applic topical BID #90 grams 01/10/21 topical cream (Thera-Gesic) triamcinolone acetonide 0.1 % See Rx Instructions .Route 02/15/23 topical cream .COMPLEX #454 grams insulin syr/ndl U100 half juancarlos 0.5 #390 ea 09/05/23 mL 29 gauge x 1/2 lorazepam 0.5 mg tablet 0.5 mg PO BID PRN panic attack 09/10/23 #10 tabs insulin syringe-needle U-100 1 mL #360 ea 11/05/23 30 gauge x 1/2 (BD Insulin Syringe Ultra-Fine) diphth,pertus(acell),tetanus 2.5 0.5 ml IM ONCE #0.5 mL 12/17/23 Lf unit-8 mcg-5 Lf/0.5mL IM syringe pen needle, diabetic 31 gauge x #100 ea 12/17/23 5/16 (Comfort EZ Pen Bedrock) lancets 33 gauge #300 ea 12/19/23 blood-glucose meter #1 ea 12/24/23 furosemide 40 mg tablet (Lasix) 40 mg PO BID #180 tab-caps 03/14/24 insulin degludec 100 unit/mL (3 60 unit (0.6 mL) subcut DAILY #60 03/25/24 mL) subcutaneous pen (Tresiba mL FlexTouch U-100 insulin) metformin 500 mg tablet 500 mg PO DAILY #90 tab-caps 03/25/24 gabapentin 600 mg tablet See Rx Instructions PO DIRECTED 04/29/24 (Neurontin) #360 tab-caps calcium 600 mg (as carbonate)-vit 1 tab PO BID #180 tabs 08/07/24 D3 10 mcg (400 unit)-minerals tablet magnesium chloride 71.5 mg 71.5 mg PO DAILY #90 tabs 08/07/24 (magnesium chloride) tablet,delayed release (Slow-Mag) varicella-zoster glycoE [id number] 0.5 ml IM ONCE #1 ea 09/30/24 adj(PF) 50 mcg/0.5 mL IM susp, kit (Shingrix (PF)) albuterol sulfate 90 mcg/actuation 2 puff inhalation QID #18 grams 10/09/24 aerosol inhaler allopurinol 100 mg tablet 100 mg PO DAILY #90 tab-caps 10/09/24 losartan 100 mg tablet (Cozaar) 100 mg PO DAILY #90 tab-caps 12/05/24 blood sugar diagnostic #300 ea 12/19/24 rosuvastatin 5 mg tablet (Crestor) 5 mg PO DAILY #90 tab-caps 12/27/24 citalopram 20 mg tablet (Celexa) 20 mg PO DAILY #90 tab-caps 01/06/25 tetanus and diphther. tox (PF) 5 0.5 ml IM ONCE #0.5 mL 01/06/25 Lf unit-2 Lf unit/0.5 mL IM susp blood-glucose,shipfitter,cont #1 ea 01/27/25 (Dexcom G7 Novelty Chain Maker) insulin aspart U-100 100 unit/mL 10 - 25 unit (0.1 - 0.25 mL) 01/31/25 (3 mL) subcutaneous pen (Novolog subcut TID #45 mL FlexPen U-100 Insulin aspart) potassium chloride 10 mEq 20 meq (2 x 10 mEq) PO BID #360 01/31/25 capsule,extended release caps pen needle, diabetic 29 gauge x #400 ea 03/30/25 1/2 blood-glucose sensor (Dexcom G7 #12 ea 04/13/25 Sensor device) metoprolol succinate 25 mg 25 mg PO DAILY #90 tab-caps 04/13/25 tablet,extended release 24 hr naloxone 4 mg/actuation nasal 4 mg NS PRN #2 ea 04/13/25 spray (Narcan) nystatin 100,000 unit/gram topical 1 applic topical BID PRN rash #180 04/13/25 powder (Nystop) grams semaglutide 2 mg/dose (8 mg/3 mL) 2 mg (0.75 mL) subcut QWEEK #9 mL 04/13/25 subcutaneous pen injector tramadol 50 mg tablet 50 - 100 mg (1 - 2 x 50 mg) PO TID 04/13/25 PRN pain #120 tabs Current Visit Medications: Current Medications Generic Name Dose Route Start Last Admin Trade Name Freq PRN Reason Stop Dose Admin Acetaminophen 1,000 mg 05/12/25 06:00 05/12/25 10:48 Acetaminophen 500 Mg Tab PO 05/12/25 23:59 1,000 mg PREOP LARY Administration Acetaminophen 1,000 mg 05/12/25 08:30 Acetaminophen 500 Mg Tab PO 06/11/25 08:29 TID LARY Albuterol Sulfate 2 puff 05/12/25 08:30 Albuterol Hfa 8 Gm 60 Puff Inh IH 06/11/25 08:29 QID LARY Allopurinol 100 mg 05/12/25 08:30 Allopurinol 100 Mg Tab PO 06/11/25 08:29 DAILY LARY Aspirin 81 mg 05/12/25 20:00 Aspirin E.C. 81 Mg Tabec PO 06/11/25 19:59 BID LARY Celecoxib 400 mg 05/12/25 06:00 05/12/25 10:47 Celecoxib 200 Mg Cap PO 05/12/25 23:59 400 mg PREOP LARY Administration Celecoxib 200 mg 05/12/25 20:00 Celecoxib 200 Mg Cap PO 06/11/25 19:59 BID LARY Citalopram Hydrobromide 20 mg 05/12/25 08:30 Citalopram 20 Mg Tab PO 06/11/25 08:29 DAILY LARY Dexamethasone 4 mg 05/13/25 08:30 Dexamethasone 4 Mg Tab PO 05/14/25 08:31 DAILY LARY Docusate Sodium 100 mg 05/12/25 07:26 Docusate Sodium 100 Mg Cap PO 06/11/25 07:25 BID PRN PRN Constipation Furosemide 40 mg 05/12/25 08:30 Furosemide 40 Mg Tab PO 06/11/25 08:29 BID LARY Gabapentin 300 mg 05/12/25 06:00 05/12/25 10:53 Gabapentin 300 Mg Cap PO 05/12/25 23:59 300 mg PREOP LARY Administration Gabapentin 300 mg 05/12/25 20:00 Gabapentin 300 Mg Cap PO 06/11/25 19:59 HS LARY Gabapentin 0 mg 05/12/25 08:00 Gabapentin 600 Mg Tab PO 06/11/25 07:59 DIRECTED LARY Ringer's Solution 1,000 mls @ 80 mls/hr 05/12/25 06:00 IV 05/12/25 23:59 INFUSION LARY Cefazolin Sodium 3,000 mg/ 100 mls @ 200 mls/hr 05/12/25 06:00 Sodium Chloride IV 05/12/25 23:59 PREOP LARY Tranexamic Acid/Sodium Chloride 1,000 mg in 100 mls @ 600 mls/hr 05/12/25 06:00 IVPB 05/12/25 23:59 PREOP LARY Tranexamic Acid/Sodium Chloride 1,000 mg in 100 mls @ 600 mls/hr 05/12/25 06:00 IVPB 05/12/25 23:59 DIRECTED [facility] Cefazolin Sodium/Dextrose 1 gm in 50 mls @ 100 mls/hr 05/12/25 08:00 Ancef Duplex IVPB 05/13/25 00:29 Q8H [facility] IV Miscellaneous Supplies 1 each 05/12/25 06:00 Iv Access IV 05/12/25 23:59 DIRECTED [facility] Insulin Aspart 10 - 25 units 05/12/25 08:30 Insulin Aspart 300 Units/3 Ml Pen SC 06/11/25 08:29 TID LARY Metformin HCl 500 mg 05/12/25 08:30 Metformin 500 Mg Tab PO 06/11/25 08:29 DAILY [facility] Metoprolol Succinate 25 mg 05/12/25 08:30 Metoprolol Cr 25 Mg Tabcr PO 06/11/25 08:29 DAILY LARY Naloxone HCl 4 mg 05/12/25 07:45 Naloxone Nasal 4 Mg/Sabetha Inhn-Vdh NS 06/11/25 07:44 PRN LARY Non-Formulary Medication 1 tab 05/12/25 08:30 Calcium Carbonate-Vit D3-Min PO 06/11/25 08:29 BID LARY Non-Formulary Medication 60 unit 05/12/25 08:30 Insulin Degludec [Tresiba Flextouch U-100] SC 06/11/25 08:29 DAILY LARY Non-Formulary Medication 100 mg 05/12/25 08:30 Losartan [Cozaar] PO 06/11/25 08:29 DAILY LARY Non-Formulary Medication 71.5 mg 05/12/25 08:30 Magnesium Chloride [Slow-Mag] PO 06/11/25 08:29 DAILY LARY Oxycodone HCl 0 mg 05/12/25 07:26 Oxycodone 5 Mg Tab PO 06/11/25 07:25 Q3H PRN PRN Pain Pantoprazole Sodium 40 mg 05/13/25 07:30 Pantoprazole 40 Mg Tabcr PO 06/12/25 07:29 DAILY@0730 [facility] Polyethylene Glycol 17 gm 05/12/25 07:26 Polyethylene Glycol 3350 17 Gm Packet PO 06/11/25 07:25 BID PRN PRN Constipation Potassium Chloride 20 meq 05/12/25 08:30 Potassium Chloride 10 Meq Capcr PO 06/11/25 08:29 BID [facility] Rosuvastatin Calcium 5 mg 05/12/25 08:30 Rosuvastatin 5 Mg Tab PO 06/11/25 08:29 DAILY [facility] Sodium Chloride 0 ml 05/12/25 06:00 Normal Saline Flush 10 Ml Syr IV 05/12/25 23:59 PRN PRN Sodium Chloride 0 ml 05/12/25 06:00 Normal Saline 10 Ml Vial IJ 05/12/25 23:59 DIRECTED PRN Sterile Water 0 ml 05/12/25 06:00 Water,Injection,Sterile 10 Ml Vial IJ 05/12/25 23:59 DIRECTED PRN Tramadol HCl 50 - 100 mg 05/12/25 07:32 Tramadol 50 Mg Tab PO 06/11/25 07:31 TID PRN PRN Pain Tranexamic Acid 1,300 mg 05/12/25 07:26 Tranexamic Acid 650 Mg Tab PO 06/11/25 07:25 ONCE PRN postoperative PFSH Active Problems Active Problems: Problem Status Onset Code Hepatic steatosis Acute K76.0 Broken tooth Acute S02.5XXA RUQ abdominal pain Acute R10.11 Shortness of breath Acute R06.02 Grief at loss of child Acute F43.21, Z63.4 Osteoarthritis of right knee Chronic M17.11 Umbilical hernia Chronic 07/29/13 K42.9 Sleep apnea Chronic 01/09/17 G47.30 Psoriasis Chronic L40.9 Osteopenia Chronic 12/23/08 M85.80 Osteoarthritis of left knee Chronic 06/29/16 M17.12 Neuropathy Chronic G62.9 Leukocytosis, unspecified Chronic D72.829 Increased body mass index Chronic R63.8 Hyperlipidemia Chronic 04/08/13 E78.5 Gout Chronic 04/08/13 M10.9 Generalized osteoarthrosis Chronic M15.9 Depressive disorder Chronic F32.9 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 Called [facility] Pathologist who said given her BMI it should have been detected for 72 hours. At next visit I said I would NOT rx opiates and stimulants as she broke the narcotic contract Spondylolisthesis 03/07 LUMBAR XRAY: GRADE I SPONDYLOLISTHESIS AT L5-S1 Per pt. states she had metal in her back Shoulder pain right shoulder injury 1997; W/C; reinjured 11/02 (pt. 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) 2 by 3 mmm irregular flat brownish mole Medical History Comments:: 05/12/25: Dexcom 7 monitor on RUArm Surgical History Surgical History History of back surgery Dupuytren's contracture of left hand S/P partial polypectomy: 04/20/2021 History of hysterectomy (07/29/13) History of section Status post cholecystectomy H/O section S/P cholecystectomy Hx of hysterectomy 07/29/13 Dupuytren's contracture of right hand (02/25/18) Status post partial palmar fasciectomy on 05/13/2021 (right ring finger); 02/11/2019 section (~1979) Abdominal hysterectomy Partial Cholecystectomy (~1994) Tobacco Smoking/Tobacco Use Status: Never Passive smoking exposure: Yes Second hand exposure: Yes Alcohol Alcohol Intake: never Substance Use Substance use: Never Substance use type: does not use Vital Signs and Lab Results Vital Signs Most Recent Vital Signs in EMR: Most Recent Vital Signs Temp Pulse Resp BP Pulse Ox 36.6 C 66 16 124/58 L 95 05/12/25 10:32 05/12/25 10:32 05/12/25 10:32 05/12/25 10:32 05/12/25 10:32 Point of Care Results Point of Care Results: Finger Stick Blood Glucose 96 05/12/25 10:58 Lab Results Complete Blood Count: WBC, (4.4-10.8) 15.50 10^3/uL H 05/04/25, 13:40 RBC, (3.93-5.22) 5.32 10^6/uL H 05/04/25, 13:40 Hgb, (11.2-15.7) 15.7 g/dL 05/04/25, 13:40 Hct, (36.0-46.0) 47.7 % H 05/04/25, 13:40 Plt Count, (130-400) 387 10^3/uL 05/04/25, 13:40 Complete Metabolic Panel: Sodium, (136-145) 140 mmol/L 05/04/25, 13:40 Potassium, (3.5-5.1) 3.8 mmol/L 05/04/25, 13:40 Chloride, (98-107) 102 mmol/L 05/04/25, 13:40 Carbon Dioxide, (21.0-32.0) 30.1 mmol/L 05/04/25, 13:40 BUN, (7-18) 29 mg/dL H 05/04/25, 13:40 Creatinine, (0.55-1.02) 1.2 mg/dL H 05/04/25, 13:40 Est GFR (CKD-EPI 2020), (mL/min/1.73m2) 48.70 05/04/25, 13:40 Calcium, (8.5-10.1) 10.0 mg/dL 05/04/25, 13:40 Glucose, (74-106) 139 mg/dL H 05/04/25, 13:40 Hemoglobin A1c, (4.5-5.7) 6.0 % H 04/13/25, 12:14 Toxicology Panel: Ur Amphetamines Screen, (Negative) Negative 04/13/25, 11:20 U Benzodiazepines Scrn, (Negative) Negative 04/13/25, 11:20 Ur Barbiturates Screen, (Negative) Negative 04/13/25, 11:20 Urine Cocaine Screen, (Negative) Negative 04/13/25, 11:20 Urine Methadone Screen, (Negative) Negative 04/13/25, 11:20 Urine Opiates Screen, (Negative) Negative 04/13/25, 11:20 Ur Tricyclics Screen, (Negative) Negative 04/13/25, 11:20 Ur THC Screen, (Negative) Negative 04/13/25, 11:20 Anesthesia Assessment and Plan Anesthesia History Personal History: No History of Anesthesia Complications Family History: No Family History of Anesthesia Complications Exercise Tolerance Exercise Tolerance: Metabolic Equivalents>4 Pertinent Negatives Pertinent Negatives: No Symptoms of GERD Cardiac & Pulmonary Exam Cardiac Exam: Normal S1/S2 Heart Sounds Pulmonary Exam: Clear Bilateral Breath Sounds Implantable Cardiac Device Does patient have a Pacemaker or an ICD?: No Airway Exam Known Difficult Airway: No Mallampati Class: 3 Mouth Opening: Normal (> 3cm) Thyromental Distance: Greater than 3 cm Neck Range of Motion: Full ROM Neck Circumference: Thick Teeth Condition: Normal Dentition ASA Classification ASA Score: ASA 3 Emergency Case?: No NPO Status NPO Status: NPO Clears >2 hours, Solids >8 hours Anesthesia Plan Resuscitation Status: Full Code Anesthesia Technique: General Anesthesia Airway Planned: Endotracheal Tube Pain Management: Surgeon and patient request nerve block Monitors Used: Standard Monitors and SedLine
[2025-05-12] MEDS: Lactated Ringers 1,000 ML 80 ML IV ×2 (11:19→14:57)
[2025-05-12] MEDS: ceFAZolin 3,000 MG in Normal Saline 100 ML 200 MG IV (12:07)
[2025-05-12] MEDS: TRANEXAMIC ACID/SOD. CHL. 1,000 MG/100 ML BAG 600 MG IVPB (12:20)
--- NOTE | 2025-05-12 13:09 | W.ANESNERVE ---
Nerve Block Single Injection Procedure Date and Time Date Performed: 05/12/25 Procedure Start: 11:44 Location Where Procedure Performed Procedure Location: Day Surgery Unit Reason Performed: Postoperative Analgesia Requesting Provider: Tyler Stubbs Timeout Performed Timeout Performed: Yes Monitoring Used ECG, Blood Pressure, SpO2, ETCO2 and See EMR for corresponding vital signs Sterility Sterility: Hand Hygiene, Surgical Cap, Surgical Mask, Sterile Gloves, Eye Protection and Chlorhexidine Sedation Given During Procedure Sedation Given (Indicate Dose Given): Versed IV Dose:: 2mg IVP Patient Mental Status Patient Mental Status: Sedate with meaningful communication Nerve Block 1st Nerve Block: Laterality: Right Block Type: Adductor Canal Ultrasound Image Saved?: Yes Needle / Catheter Used: 120mm SonoPlex II Local Anesthetic Bolus (Indicate Dose Given): Lidocaine used for local infiltration of skin, Injected in 3-5ml increments after negative blood aspiration, Exparel Dose:: 1.33%/10cc (133mg) and Bupivacaine 0.25% with Epinephrine (1:200,000) Dose:: 0.25%/10cc (25mg) Additives (Indicate Dose Given): None Ultrasound: Sterile probe cover and gel used Nerve Stimulator: Not Used Paresthesia: None Procedure Tolerated: No Complications and Patient tolerated well Procedure Outcome: Successful Performed By: Justus Robledo 2nd Nerve Block: Laterality: Left Block Type: Adductor Canal Ultrasound Image Saved?: Yes Needle / Catheter Used: 120mm SonoPlex II Local Anesthetic Bolus (Indicate Dose Given): Lidocaine used for local infiltration of skin, Injected in 3-5ml increments after negative blood aspiration, Exparel Dose:: 1.33%/10cc (133mg) and Bupivacaine 0.25% with Epinephrine (1:200,000) Dose:: 0.25%/10cc (25mg) Additives (Indicate Dose Given): None Ultrasound: Sterile probe cover and gel used Nerve Stimulator: Not Used Paresthesia: None Procedure Tolerated: No Complications and Patient tolerated well Procedure Outcome: Successful Performed By: Justus Robledo
[2025-05-12] MEDS: TRANEXAMIC ACID/SOD. CHL. 1,000 MG/100 ML BAG 100 MG (13:37)
--- NOTE | 2025-05-12 16:07 | ROE_ITS ---
Operative Note Operative Note PRE-OP DIAGNOSIS: Bilateral Knee Arthritis POST-OP DIAGNOSIS: same PROCEDURE: Bilateral Knee Arthroplasty SURGEON: Tyler Stubbs ANESTHESIA TYPE: General LMA/ETT Refer to Anesthesia Record ESTIMATED BLOOD LOSS: 600 PATHOLOGY: none sent COMPLICATIONS: None Patient was transported to: PACU Patient's condition: stable Implants: LEFT: 1. Depuy Attune Cementless Cruciate Retaining Femoral Component, Size 6 2. Depuy Attune Cementless Fixed Bearing Tibial Component, Size 5 3. Depuy Attune 6x7 CR/FB Poly 4. Depuy Attune Patellar Component, Size 35 RIGHT: 1. Depuy Attune Cementless Cruciate Retaining Femoral Component, Size 6 2. Depuy Attune Cementless Fixed Bearing Tibial Component, Size 5 3. Depuy Attune 6x7 CR/FB Poly 4. Depuy Attune Patellar Component, Size 35 Indications: I have seen Alison in clinic for symptoms of knee arthritis, confirmed with radiographic findings. She has exhausted nonoperative methods and was having significant limitations in daily function and desired better function and less pain. I discussed the technical details of a knee replacement. I explained the risks of the procedure to include, but not limited to, bleeding, infection, pain, stiffness, fracture, damage to nerves and vessels, damage to muscles and tendons, loosening, need for repeat procedure, blood clot and cardiopulmonary demise. Despite these risks, Alison elected to proceed. Findings: There was significant arthritis throughout both knees involving all 3 compartments with notable arthritic change with the posterior portion of the knee. Procedure Description: Alison was greeted in the preoperative holding area where the correct side was identified and marked. The consent was reviewed with the patient and signed. The history and physical was updated. All questions were answered. Preoperati ve medications were administered: Acetaminophen 1000mg, Celebrex 400mg, and Gabapentin 300mg. An adductor canal block was then administered by the anesthesia team in the [facility] for each knee. She was taken back to the operating room. A general anesthetic was then administered. The patient was placed into the supine position on the operating room table. A nonsterile tourniquet was placed high onto the leg but only used for cementing. Posts were placed for positioning during the procedure. All bony prominences were well padded. Prophylactic antibiotics in the form of Cefazolin were administered. 1g of Tranxemic Acid was given intravenously within 30 minutes of incision. Both legs were then prepped with Chloraprep and draped in a standard fashion with impervious stockinette. The right leg was to be done first, thus the [place] segment was opened and A second prep with Chloraprep was performed prior to application of Iodine impregnated skin protection. A timeout to confirm correct identity, procedure, allergies, anesthesia, and medical concerns was performed. RIGHT KNEE: With the knee in some flexion, a midline incision was made overlying the knee. Full thickness skin flaps were raised once the extensor mechanism was encountered. These were raised medially and laterally. Any bleeding was controlled with electrocautery. Once the extensor mechanism was fully exposed, a medial parapatellar arthrotomy was performed in a flexed position. All bleeding from the arthrotomy and the geniculate arteries was coagulated. A medial subperiosteal peel was performed with electrocautery to the midcoronal plane. Due to the significant varus deformity the entire medial tibial plateau was exposed. The fat pad was removed while keeping the patellar tendon protected. The anterior distal femur synovium was removed for later visualization. The ACL and PCL were resected and the anterior horn of the lateral meniscus was transected. The knee was then flexed with the patella everted. Large osteophytes from the tibia were removed. Large osteophytes from the femur were removed. Using a step drill, and based on preoperative templating, the femoral canal was entered. This was done with a step drill without any difficulty. The intramedullary distal femoral cut guide was inserted, set to a 5 degree valgus cut and 9mm cut thickness. The distal femoral cut guide was then held in position and pinned. With the soft tissues protected, the distal cut was performed. This was passed over a few times to ensure a planar cut. I then turned attention to the tibia. The extramedullary guide was placed onto the leg. The distal aspect was slid medial to adjust for position of center of ankle and stay in line with shaft of the tibia. Approximately 3-5 degrees of posterior slope was kept in the proximal cutting guide. The center of the guide was aligned with the PCL. The stylus was used to assess cut thickness. The medial side, most involved side, was set for a 6mm cut. This was then held in position and pinned into place with 2 additional pins and a cross pin for stability. The medial and lateral collateral ligaments were protected and the cut was performed. With this completed, it was assessed and noted to be of appropriate dimensions. The guide was removed. A spacer block was inserted and the knee was brought into extensi on. The 6mm spacer block provided full extension, without hyperextension and with stability of both the medial and lateral collateral ligaments was assessed. The pins from the femur and the tibia were then removed. The distal femur was then sized. The anterior stylus was placed onto the lateral ridge of the anterior femur. This indicated a size 6 femur. The external rotation of the guide was adjusted to 3 degrees to match the epicondylar axis, perpendicular to [place]?s line. The 4-in-1 cutting guide was the placed. The posterior medial femur cut was evaluated and appeared of good thickness. The spacer block was inserted underneath the cutting guide and stability was confirmed in 90 degrees of flexion. This cutting block was then moved posteriorly 1.5 mm to close down the flexion space. Then, an carl wing was used to confirm appropriate position of the anterior cut to avoid notching. This cutting guide was ensured to be flush on the cut surface and then pinned into place with headed pins. While protecting the soft tissues, quad tendon, and collateral ligaments, the anterior and posterior cuts were performed with a saw. The central two pins were removed and the posterior and anterior chamfers were cut next. The notch-cutting guide was placed. This was pinned to lateralize the femoral component as much as possible while keeping it flush on the cut surface. This was then pinned into position. A reciprocating saw was used to make the notch cut. A rasp smoothed the cut surfaces. The medial and lateral menisci were removed. A trial femoral component was then inserted, impacted down to the cut surfaces, and the lug holes were drilled. A provisional trial tibial component was placed and the knee was brought through range of motion. The polyethylene was trialed until there was good flexion and extension with excellent stability to the medial and lateral collaterals. The patella was tracking without thumbs. A size 7mm polyethylene component provided the best range of motion and stability with less than 2mm gapping with medial and lateral stress and full extension without significant hyperextension. The tibial cut surface was fully exposed. The tibia was then sized as a 5. The tibia had been previously marked during trialing to correspond to the center of the tibial component to help with rotation. The trial was aligned to this juancarlos, approximately rotated to the medial 1/3rd of the tibial tubercle. The trial was pinned into place. The tibia was prepared with a reamer and a keel punch and lug holes. The knee was then brought into extension and the patella was measured as 23mm. Using the patellar clamp and cut guide, this was resected to a flat surface with at least 13mm of thickness remaining. The size 35mm patella fit the best. This was oriented and then clamped into position. The lugs were drilled. Throughout the case there is a significant mount of ooze but with no specific bleeding. She remained stable. The trial components were removed. The final components were opened on the back table. The periosteal and capsular tissues, especially posteriorly, around the knee were then systematically injected with a periarticular cocktail consisting of 246mg of Ropivacaine, 0.5mg of Epinephrine, 0.08mg of Clonidine, and 30mg of Ketorolac, diluted to 100cc. On the back table, with the implants opened, the cement was mixed. One batch of high viscosity cement was prepared with vacuum assistance. After the cement was ready a small amount was placed on the cut surface of the patella and the patellar button was clamped into position and held. While the cement was hardening, the cementless knee components were placed. Starting with the tibial component, the tibia was subluxed anteriorly and the lug holes of the component were lined up. The tibia was then impacted with an impactor and mallet until the tibial component was in contact with the tibia. The final polyethylene component was inserted. Then, the femoral component was inserted. The lug holes were aligned and the component was impacted into position. The knee was irrigated with Surgiphor Betadine solution. This was allowed to sit in the knee for 3 minutes and then it was irrigated out with saline. After the cement had finally cured, approximately 15min, the clamp was removed from the patella and the knee was taken through range of motion. The patella was tracking with a no-thumbs technique. The capsule was then reapproximated with a No. 1 Vicryl at multiple locations. The capsule was finally closed with a No. 2 Stratafix, barbed suture. The second dosing of 1g TXA was started. Deep tissues were then reapproximated with 0 Vicryl and 2-0 Vicryl. The skin was closed with a running 3-0 Monocryl in a subcuticular fashion. The wound was then covered with a sterile blue towel and attention was turned to the left knee. She tolerated the surgery thus far well without any notable complications. LEFT KNEE: With the knee in some flexion, a midline incision was made overlying the knee. Full thickness skin flaps were raised once the extensor mechanism was encountered. These were raised medially and laterally. Any bleeding was controlled with electrocautery. Once the extensor mechanism was fully exposed, a medial parapatellar arthrotomy was performed in a flexed position. All bleeding from the arthrotomy and the geniculate arteries was coagulated. A medial subperiosteal peel was performed with electrocautery to the midcoronal plane. Due to the significant varus deformity the entire medial tibial plateau was exposed. The fat pad was removed while keeping the patellar tendon protected. The anterior distal femur synovium was removed for later visualization. The ACL and PCL were resected and the anterior horn of the lateral meniscus was transected. The knee was then flexed with the patella everted. Large osteophytes from the tibia were removed. Large osteophytes from the femur were removed. Using a step drill, and based on preoperative templating, the femoral canal was entered. This was done with a step drill without any difficulty. The intramedullary distal femoral cut guide was inserted, set to a 5 degree valgus cut and 9mm cut thickness. The distal femoral cut guide was then held in position and pinned. With the soft tissues protected, the distal cut was performed. This was passed over a few times to ensure a planar cut. I then turned attention to the tibia. The extramedullary guide was placed onto the leg. The distal aspect was slid medial to adjust for position of center of ankle and stay in line with shaft of the tibia. Approximately 3-5 degrees of posterior slope was kept in the proximal cutting guide. The center of the guide was aligned with the PCL. The stylus was used to assess cut thickness. The medial side, most involved side, was set for a 6mm cut. This was then held in position and pinned into place with 2 additional pins and a cross pin for stability. The medial and lateral collateral ligaments were protected and the cut was performed. With this completed, it was assessed and noted to be of appropriate dimensions. The guide was removed. A spacer block was inserted and the knee was brought into extension. The 6mm spacer block provided full extension, without hyperextension and with stability of both the medial and lateral collateral ligaments was assessed. The pins from the femur and the tibia were then removed. The distal femur was then sized. The anterior stylus was placed onto the lateral ridge of the anterior femur. This indicated a size 6 femur. The external rotation of the guide was adjusted to 3 degrees to match the epicondylar axis, perpendicular to [place]?s line. The 4-in-1 cutting guide was the placed, moved posteriorly 1 notch, approximately 1.5 mm based on the contralateral side. The posterior medial femur cut was evaluated and appeared of good thickness. The spacer block was inserted underneath the cutting guide and stability was confirmed in 90 degrees of flexion. An carl wing was used to confirm appropriate position of the anterior cut to avoid notching. This cutting guide was ensured to be flush on the cut surface and then pinned into place with headed pins. While protecting the soft tissues, quad tendon, and collateral ligaments, the anterior and posterior cuts were performed with a saw. The central two pins were removed and the posterior and anterior chamfers were cut next. The notch-cutting guide was placed. This was pinned to lateralize the femoral component as much as possible while keeping it flush on the cut surface. This was then pinned into position. A reciprocating saw was used to make the notch cut. A rasp smoothed the cut surfaces. The medial and lateral menisci were removed. A trial femoral component was then inserted, impacted down to the cut surfaces, and the lug holes were drilled. A provisional trial tibial component was placed and the knee was brought through range of motion. The polyethylene was trialed until there was good flexion and extension with excellent stability to the medial and lateral collaterals. The patella was tracking without thumbs. A size 7mm polyethylene component provided the best range of motion and stability with less than 2mm gapping with medial and lateral stress and full ext ension without significant hyperextension. The tibial cut surface was fully exposed. The tibia was then sized as a 5. The tibia had been previously marked during trialing to correspond to the center of the tibial component to help with rotation. The trial was aligned to this juancarlos, approximately rotated to the medial 1/3rd of the tibial tubercle. The trial was pinned into place. The tibia was prepared with a reamer and a keel punch and lug holes. The knee was then brought into extension and the patella was measured as 22mm. Using the patellar clamp and cut guide, this was resected to a flat surface with at least 13mm of thickness remaining. The size 35 patella fit the best. This was oriented and then clamped into position. The lugs were drilled. The trial components were removed. The final components were opened on the back table. The periosteal and capsular tissues, especially posteriorly, around the knee were then systematically injected with a periarticular cocktail consisting of 246mg of Ropivacaine, 0.5mg of Epinephrine, 0.08mg of Clonidine, and 30mg of Ketorolac, diluted to 100cc. On the back table, with the implants opened, the cement was mixed. One batch of high viscosity cement was prepared with vacuum assistance. After the cement was ready a small amount was placed on the cut surface of the patella and the patellar button was clamped into position and held. While the cement was hardening, the cementless knee components were placed. Starting with the tibial component, the tibia was subluxed anteriorly and the lug holes of the component were lined up. The tibia was then impacted with an impactor and mallet until the tibial component was in contact with the tibia. The final polyethylene component was inserted. Then, the femoral component was inserted. The lug holes were aligned and the component was impacted into position. The knee was irrigated with Surgiphor Betadine solution. This was allowed to sit in the knee for 3 minutes and then it was irrigated out with saline. After the cement had finally cured, approximately 15min, the clamp was removed from the patella and the knee was taken through range of motion. The patella was tracking with a no-thumbs technique. The capsule was then reapproximated with a No. 1 Vicryl at multiple locations. The capsule was finally closed with a No. 2 Stratafix, barbed suture. Deep tissues were then reapproximated with 0 Vicryl and 2-0 Vicryl. The skin was closed with a running 3-0 Monocryl in a subcuticular fashion. Both incisions were then reinforced with skin glue. A Mepilex silver dressing was applied along with a [id number] YASMIN wrap to both knees. A CryoCuff was applied. Alison was transferred to the hospital bed without difficulty and suffering no apparent complication. Alison has a good prognosis. Physical therapy will start today and without restrictions, weight-bearing as tolerated. Aspirin 81mg BID will be used for DVT prophylaxis. Date of Procedure: 05/12/25
--- NOTE | 2025-05-12 16:17 | W.ANESPOSTOP ---
Postoperative Evaluation Date, Time and Location Date Performed: 05/12/25 Time Performed: 16:17 Patient Location: PACU Vital Signs Most Recent Imported Vital Signs: Most Recent Vital Signs Temp Pulse Resp BP Pulse Ox 37.1 C 64 17 125/46 L 96 05/12/25 16:10 05/12/25 16:15 05/12/25 16:15 05/12/25 16:10 05/12/25 16:15 Pain Score Most Recent Pain Score: Most Recent Pain Score Pain Level 0 05/12/25 16:14 Assessment Mental Status: Awake (Alert & Oriented to Patient Baseline) Airway and Respiratory Function: Patent airway with normal (patient baseline) respiratory exam Cardiovascular Function: Hemodynamically Stable Hydration Status: Adequately Hydrated Nausea & Vomiting: No Nausea or Vomiting Pain: Pt. Denies Any Pain Peripheral Nerve Block: Regional nerve block not resolved at time of post operative discharge
[2025-05-12] MEDS: Citalopram 20 MG TAB PO (17:08)
--- NOTE | 2025-05-12 17:45 | W.PC.ACHO ---
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) (Last Reviewed 05/12/25 @ 10:36 by Fior Alcantara RN) History of back surgery Dupuytren's contracture of left hand History of hysterectomy (07/29/13) History of section Status post cholecystectomy H/O section S/P cholecystectomy Hx of hysterectomy Dupuytren's contracture of right hand (02/25/18) section (~1979) Abdominal hysterectomy Cholecystectomy (~1994) Most Recent Vital Signs Temperature 36.5 C 05/12/25 17:29 Temperature Source Temporal Artery Scan 05/12/25 17:29 Pulse 64 05/12/25 17:29 Pulse Rhythm Regular 05/12/25 17:15 Pulse 64 05/12/25 16:21 Respiratory Rate 18 05/12/25 17:29 Respiratory Effort Normal, Non-Labored 05/12/25 17:15 Respiratory Depth Normal 05/12/25 17:15 Respiratory Pattern Normal 05/12/25 17:15 Blood Pressure 117/61 05/12/25 17:29 Blood Pressure Mean 79 05/12/25 17:29 Blood Pressure Position Supine 05/12/25 11:50 Pulse Oximetry 96 05/12/25 17:29 Respiratory End-tidal CO2 43 05/12/25 16:21 Oxygen Delivery Method Room Air 05/12/25 17:29 Oxygen Flow Rate 0 05/12/25 17:29 Pain Level 0 05/12/25 17:29 Comment 11:55 LEFT adductor canal block completed by Carin SCHUSTER, assisted by Aristeo PRICE. No issues observed/reported. Pt sleepy during provedure, eyes closed. Answering questions when asked. Post VS taken. Pt denies metallic taste in mouth, ringing in ears, tingling, pain or feeling unusual in any way. Pt transferred to OR at 11:59 am by Iza Ayala RN. 05/12/25 11:50 Allergies triamcinolone Allergy (Mild, Verified 05/12/25 10:38) rash hydromorphone Adverse Reaction (Unknown, Verified 05/12/25 10:38) GOT REALLY DEMENTED Active Medications Generic Name Dose Route Start Last Admin Trade Name Raulq PRN Reason Stop Dose Admin Acetaminophen 1,000 mg 05/12/25 06:00 05/12/25 10:48 Acetaminophen 500 Mg Tab PO 05/12/25 23:59 1,000 mg PREOP LARY Administration Acetaminophen 1,000 mg 05/12/25 08:30 05/12/25 17:08 Acetaminophen 500 Mg Tab PO 06/11/25 08:29 1,000 mg TID LARY Administration Albuterol Sulfate 2 puff 05/12/25 08:30 05/12/25 16:55 Albuterol Hfa 8 Gm 60 Puff Inh IH 06/11/25 08:29 Not Given QID LARY Allopurinol 100 mg 05/12/25 08:30 05/12/25 16:56 Allopurinol 100 Mg Tab PO 06/11/25 08:29 Not Given DAILY LARY Celecoxib 400 mg 05/12/25 06:00 05/12/25 10:47 Celecoxib 200 Mg Cap PO 05/12/25 23:59 400 mg PREOP LAYR Administration Citalopram Hydrobromide 20 mg 05/12/25 08:30 05/12/25 17:08 Citalopram 20 Mg Tab PO 06/11/25 08:29 20 mg DAILY LARY Administration Furosemide 40 mg 05/12/25 08:30 05/12/25 16:56 Furosemide 40 Mg Tab PO 06/11/25 08:29 Not Given BID LARY Gabapentin 300 mg 05/12/25 06:00 05/12/25 10:53 Gabapentin 300 Mg Cap PO 05/12/25 23:59 300 mg PREOP LARY Administration Ringer's Solution 1,000 mls @ 80 mls/hr 05/12/25 06:00 05/12/25 15:38 IV 05/12/25 23:59 80 mls/hr INFUSION LARY Infusion Cefazolin Sodium 3,000 mg/ 100 mls @ 200 mls/hr 05/12/25 06:00 05/12/25 12:35 Sodium Chloride IV 05/12/25 23:59 Infused PREOP LARY Infusion Tranexamic Acid/Sodium Chloride 1,000 mg in 100 mls @ 600 mls/hr 05/12/25 06:00 05/12/25 12:30 IVPB 05/12/25 23:59 Infused DIRECTED LARY Infusion Insulin Aspart 10 - 25 units 05/12/25 08:30 05/12/25 16:57 Insulin Aspart 300 Units/3 Ml Pen SC 06/11/25 08:29 Not Given TID LARY Metformin HCl 500 mg 05/12/25 08:30 05/12/25 16:57 Metformin 500 Mg Tab PO 06/11/25 08:29 Not Given DAILY LARY Metoprolol Succinate 25 mg 05/12/25 08:30 05/12/25 16:57 Metoprolol Cr 25 Mg Tabcr PO 06/11/25 08:29 Not Given DAILY LARY Potassium Chloride 20 meq 05/12/25 08:30 05/12/25 16:57 Potassium Chloride 10 Meq Capcr PO 06/11/25 08:29 Not Given BID LARY Rosuvastatin Calcium 5 mg 05/12/25 08:30 05/12/25 16:57 Rosuvastatin 5 Mg Tab PO 06/11/25 08:29 Not Given DAILY LARY IV IV Catheter Type [Left Forearm Peripheral IV ] IV Catheter Gauge [Left 20 Forearm] Diet Orders Category Date Time Status Diabetes Consistent CHO [DIET] Nutrition 05/12/25 Lunch Active [id number] Documentation Fingerstick Glucose Start: 05/12/25 11:00 Freq: Status: Active Protocol: Activity Type Activity Date Activity User E-sign Co-sign Detail Recorded Client Recorded Date Recorded By Document 05/12/25 15:45 BKG DAEMON(3) [id number] 05/12/25 15:48 BKG DAEMON(4) Intake and Output - 24 Hour Total 01/27/25 08:51 thru 05/12/25 17:15 Intake Total 1300 Output Total 300 Balance 1000 Weight 123 kg Intake: IV 1300 Output: Estimated Blood Loss 300 Other: Urine Appearance Clear Emesis Description None Falls Risk Assessment History of Falls No History 05/12/25 17:15 Contributing Factors No Factors 05/12/25 17:15 Ambulatory Aids Uses ambulatory device 05/12/25 17:15 Tubes/Lines With any additional score 05/12/25 17:15 Gait Evaluation W/no contributing factors 05/12/25 17:15 Fall Total Score 45 05/12/25 17:15 Level of Risk Moderate Risk 05/12/25 17:15 v v v v v v v v v Sending and/or Receiving Nurses: Please use comment section below to note any information pertinent to the patient hand-off not included above. Information / Comments: Report received from: bilateral knee replacement c/o no pain at this time, VS WNL, cryo cuff intat to bilateral knees and tolerating well. makes needs known, good appetite. report received from MONICA RN
--- NOTE | 2025-05-12 17:57 | PT.INIE ---
PT Notes Visit Reasons: Bilateral knee DJD Physical Therapy Inpatient Initial Evaluation Date: 05/12/2025 Referring Doctor: Sarah Moreno, LO[employer] WORKOUT OFFICER; Dr. Stubbs PT Orders: PT CONSULT: Status post Ortho surgery Precautions: Weightbearing as tolerated bilateral lower extremities, CPAP Patient Profile/Admitting Diagnosis: Samantha is a 69-year-old female presenting status post elective bilateral TKA on 05/12/2025. Postop uncomplicated. PMHX: Hepatic steatosis (Acute) Broken tooth (Acute) RUQ abdominal pain (Acute) Shortness of breath (Acute) Grief at loss of child (Acute) Osteoarthritis of right knee (Chronic) Injected: 03/27/2018, 11/25/2018, 02/10/2019Umbilical hernia (Chronic 07/29/13) Sleep apnea (Chronic 01/09/17) Psoriasis (Chronic) Osteopenia (Chronic 12/23/08) Osteoarthritis of left knee (Chronic 06/29/16) Injected: 02/25/2018, 11/25/2018, 02/10/2019Neuropathy (Chronic) in the feet Leukocytosis, unspecified (Chronic) 01/05/12 (SEE SCANNED)NEGATIVE FOR THE BCR-ABL TRANSCRIPT Saw hematology @ [facility] [place] Increased body mass index (Chronic) Hyperlipidemia (Chronic 04/08/13) Gout (Chronic 04/08/13) Generalized osteoarthrosis (Chronic) C-spine MRI 2000=C3-4 DJD; otherwise normal Depressive disorder (Chronic) 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 Ramirez, OD Uses insulin Essential hypertension (Chronic 07/28/13) Chronic pain disorder (Chronic) Medical History Dysfunctional uterine bleeding (08/20/13) Right rotator cuff tendonitis Injected 12/20/2018 DUB (dysfunctional uterine bleeding) 08/20/13 NEG ENDO BXPositive urine drug screen (~07/2018) NO oxycodone was detected. Called [facility] Pathologist who said given her BMI it should have been detected for 72 hours. At next visit I said I would NOT rx opiates and stimulants as she broke the narcotic contract Spondylolisthesis 03/07 LUMBAR XRAY: GRADE I SPONDYLOLISTHESIS AT L5-S1 Shoulder pain right shoulder injury 1997; W/C; reinjured 11/02 (pt. 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)2 by 3 mm irregular flat brownish mole Surgical History Dupuytren's contracture of left hand S/P partial polypectomy: 04/20/2021 History of hysterectomy (07/29/13) Dupuytren's contracture of right hand (02/25/18) Status post partial palmar fasciectomy on 05/13/2021 (right ring finger); 02/11/2019 section (~1979) Partial Cholecystectomy (~1994) Social History/Home Situation: Patient resides with her sister in single-family home with ramp to enter. Patient independent without assistive device ambulation, ADLs, meal prep, home management, driving. Equipment Owned/DME: FWW property of her sisters; Pt declines new FWW Subjective: Patient reports her bathroom is very wide standard height toilet with no grab bars. Patient reports she has a walk-in shower with small curb to step over. Patient requesting assistance with car transfer training prior to discharge Objective: [] General Observation: Patient presented reclined in bed with Cryo/Cuff to bilateral knees IV infusing left upper extremity. Family members present Mental Status: Alert and oriented x 4, cooperative, able to follow instructions, motivated. And agreeable to participate in evaluation Pain: Bilateral knees 2/10 ROM: [] Right Upper Extremity: WFL Left Upper Extremity: WFL Right Lower Extremity:hip and ankle WFL limited by body habitus, knee 0-90 Left Lower Extremity: hip and ankle WFL limited by body habitus, knee 0-94 Strength: [] Right Upper Extremity: 5/5 Left Upper Extremity:5/5 Right Lower Extremity: hip grossly 3-/5 knee 3-/5, ankle 3/5,lag with shortened range SLR ; fair quad set Left Lower Extremity: hip grossly 3-/5 knee 3-/5, ankle 3/5,lag with shortened range SLR ; fair quad set Sensation: Intact to pain touch bilateral lower extremities Bed Mobility/Transfers: [] Supine to sit contact-guard assist Sit to stand contact-guard assist with cues for hand placement Stand to sit contact-guard assist with cues for hand placement Bed to chair [] contact-guard assist with FWW Gait: Ambulated 25 feet x 2 with FWW contact-guard assist with reduced step length bilaterally excessive weight shift to left to advance right lower extremity, reduced knee flexion bilaterally during swing phase no episodes of knee instability noted Balance: [] Static Sitting: Normal Dynamic Sitting: Good Static Standing: Good Dynamic Standing: Fair Special Tests: [] Mobility Limitations Standardized Measure [] [facility] AM-PAC 6 clicks Basic Mobility Inpatient Short Form: [] Raw Score: 17 CMS Score: 57.70% Informed Consent/Education: Patient instructed in purpose of PT consult. Treatment: 99682 Packet containing TKA exercise protocol has been given to patient. Education and training on initial set of 10 reps of exercises that can be done at home have been completed with patient. Assessment: Samantha is a 69-year-old female presenting with impaired motor control bilateral quads. Patient presents with clinical signs and symptoms consistent with current/admitting diagnoses that have resulted to mobility limitations, gait instability, generalized weakness, and impairment of motor control as demonstrated by the following impairment level findings: 1. Decreased strength to Bilateral knee major muscle groups 2. Impaired standing balance 3. Limitation of joint range of motion in Bilateral knee 4. Pain bilateral knees 5. Impaired functional activity tolerance Impairments are contributing to the following functional limitations: 1. Inability to safely ambulate without assistive device 2. Increase completion time for mobility ADL performance 3. Increased fall risk 4. decline in transfer status 5. decline in bed mobility status. Patient is assessed as a low complexity based on the following: History: 69-year-old female with impairment level findings, functional limitations, and past medical history as indicated above Examination: Demonstrable impairment in strength, balance, and mobility level with underlying impairments and functional limitations as documented above Presentation: Stable/evolving Decision Making: Low Goals: 1. Independent bed mobility 2. Modified independent transfers with FWW 3. Supervision ambulating with FWW >50 feet 4. Independent HEP per TKA protocol with written instruction Plan of Care/Treatment Plan: PT evaluation and 1-2 treatment session only for functional mobility training using recommended AD and for HEP instruction. DISCHARGE RECOMMENDATIONS: Home with home health PT initially then progressed to outpatient PT as scheduled TREATMENT CODE/TIME: 21499, [id number] Thank you for the opportunity to participate in the care of this patient. Shavon Campos, PT [place] [facility]
[2025-05-12] MEDS: Calcium 600mg/Vit D 200U TAB 1 TAB PO (20:32)
[2025-05-12] MEDS: Aspirin E.C. 81 MG TABEC PO (20:32)
[2025-05-12] MEDS: Furosemide 40 MG TAB PO (20:32)
[2025-05-12] MEDS: Potassium Chloride 10 MEQ CAPCR 20 MEQ PO (20:32)
[2025-05-12] MEDS: Celecoxib 200 MG CAP PO (20:56)
[2025-05-12] MEDS: ceFAZolin 1 GM/50 ML BAG IVPB (20:57)
[2025-05-13] MEDS: Insulin Glargine 300 UNITS/3 ML PEN 60 UNITS SC (01:19)
[2025-05-13] MEDS: Gabapentin 600 MG TAB 1200 MG PO (01:19)
[2025-05-13 02:04] LABS: Glucose 443 mg/dL (74-106)
[2025-05-13] MEDS: ceFAZolin 1 GM/50 ML BAG IVPB ×2 (05:18→12:11)
[2025-05-13] MEDS: Lactated Ringers 1,000 ML 2000 ML IV (06:31)
--- NOTE | 2025-05-13 06:42 | W.PM.PROGNOT ---
Date of Service Date of service: 05/13/25 Time of Service: 06:42 Assessment and Plan Assessment and plan (1) Status post bilateral knee replacements: Status: Acute Assessment and plan: Postop day #1 status post bilateral knee replacements. In regards to the knees, she is doing quite well. Unfortunately there are some issues with urine output and glycemic control. Continue physical therapy. Weightbearing as tolerated with assistive device. Likely discharge to home with home health services once glucose and urine abnormalities are improved. (2) Type II diabetes mellitus with ophthalmic manifestations: Status: Chronic Assessment and plan: Unfortunate there was missed orders for glucose checks and lack of communication in regards to those deficiencies which has resulted in some persistent hyperglycemia readings. Despite self is not that unusual but unfortunately is potentially detrimental to the outcome of her knees. We need to be very aggressive with treating this. She did receive her Lantus last night just after 1 AM. We will continue to check blood glucose levels every 2 hours until they start to normalize. Will continue to treat these aggressively. (3) Anuria: Status: Acute Assessment and plan: Farida has had no urine output since surgery. Her last void was yesterday morning prior to surgery. She reports no urge to void. Bladder scan was reportedly performed with only 130cc. Unfortunately am concerned about this accuracy. I find it very unlikely she only has 130 cc of urine in her bladder and I wonder if this is affected by her habitus. Nevertheless, we will give a liter bolus. We will recheck a bladder scan and await morning labs. If the bladder scan still reads a low number that I do think we have to catheterize to make sure that the bladder is emptied as if the bladder is over full she is likely to suffer a bladder injury and the bladder will not be able to evacuate fully. Subjective Subjective Interval history since last seen: Farida reports are doing overall fairly well this morning. She is little frustrated as there was confusion about medications. She was concerned that she received increasing glucose warnings but nothing was done for a while last night. It seems that the order to check the glucose was not placed and I received no calls in regards to increasing glucose nor was any administration of insulin given at the time of dinner as ordered. I listened to Farida and her frustrations. It seems that the orders have been corrected but unfortunately her personal glucose meter has . She denies any significant pain. She was able to get up with physical therapy. She has been able to ambulate since then as well. She been doing exercises in the bed. However, she has not had any urine output. She feels no urge to pee. She does report voiding multiple times throughout the day with smaller volumes. She is Lasix dependent and did receive that last night. She denies any chest pain or shortness of breath. Her vital signs been stable. Exam Narrative Exam Narrative: Resting, slightly incline in the hospital bed. No acute distress. Alert and orient x 3. Evaluation of bilateral knees shows clean dry and intact dressings. She is moving quite freely within the bed. He is able to straight leg raise both without a lag. She is able show flexion to at least 90 degrees of both knees. Dhurv wrap's have been removed. Sensation intact to light touch over the deep and superficial peroneal nerve and tibial nerve bilaterally. Palpable DP and PT pulse. Objective Last Vital Signs Temp 36.6 C 05/12/25 19:27 Pulse 69 05/12/25 19:27 Resp 16 05/12/25 19:27 BP 114/60 05/12/25 19:27 Pulse Ox 97 05/12/25 19:27 Laboratory Results - last 24 hr 05/13/25 01:45 Glucose 443 H Time Spent with Patient Time Spent with Patient: 35-49 minutes Time was spent: preparing to see the patient(eg.review tests), obtaining and/or reviewing separately otained hiistory, ordering medications,tests, procedures, indepentently interpreting results, counseling the patient and care coordination
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
[2025-05-13 07:13] LABS: HCT 31.3 % (36.0-46.0); HGB 10.7 g/dL (11.2-15.7); MCH 30.6 pg (27.0-33.0); MCHC 34.2 % (32.0-36.0); MCV 89 fL (80-95); MPV 10.8 fL (8.0-11.0); Platelet Count 263 10^3/uL (130-400); RBC 3.50 10^6/uL (3.93-5.22); RDW 12.8 % (11.7-14.6); RDW-SD 41.8 fL; WBC 22.69 10^3/uL (4.4-10.8)
[2025-05-13 08:01] LABS: Anion Gap 11.2 mmol/L (3-11); BUN 36 mg/dL (7-18); CO2 25.8 mmol/L (21.0-32.0); Calcium 8.2 mg/dL (8.5-10.1); Chloride 96 mmol/L (98-107); Estimated GFR 28.06 (mL/min/1.73m2); Glucose 427 mg/dL (74-106); Potassium 4.8 mmol/L (3.5-5.1); Sodium 133 mmol/L (136-145)
[2025-05-13] MEDS: Acetaminophen 500 MG TAB 1000 MG PO ×2 (08:40→13:48)
[2025-05-13] MEDS: Aspirin E.C. 81 MG TABEC PO (08:40)
[2025-05-13] MEDS: Pantoprazole 40 MG TABCR PO (08:41)
[2025-05-13] MEDS: Furosemide 40 MG TAB PO (08:41)
[2025-05-13] MEDS: metFORMIN 500 MG TAB PO (08:42)
[2025-05-13] MEDS: Gabapentin 600 MG TAB PO ×2 (08:43→12:16)
[2025-05-13] MEDS: Celecoxib 200 MG CAP PO (08:44)
[2025-05-13] MEDS: Rosuvastatin 5 MG TAB PO (08:44)
[2025-05-13] MEDS: Metoprolol CR 25 MG TABCR PO (08:44)
[2025-05-13] MEDS: Potassium Chloride 10 MEQ CAPCR 20 MEQ PO (08:44)
[2025-05-13] MEDS: Calcium 600mg/Vit D 200U TAB 1 TAB PO (08:44)
[2025-05-13] MEDS: Magnesium Chloride 64 MG TABCR PO (08:44)
[2025-05-13] MEDS: Allopurinol 100 MG TAB PO (08:44)
[2025-05-13] MEDS: Losartan 50 MG TAB 100 MG PO (08:45)
[2025-05-13] MEDS: Insulin Aspart 300 UNITS/3 ML PEN SC ×2 (08:51→12:15)
--- NOTE | 2025-05-13 10:16 | PT.INTREAT ---
PT Notes Visit Reasons: Bilateral knee DJD Inpatient Physical Therapy Treatment Note [facility] Date: 05/13/2025 PRECAUTIONS:WBAT BLE, Standard, IV access LUE SUBJECTIVE:Pt reports she feels well. She stated she was able to finally urinate this morning and states her blood sugar level is trending downward now. PM session: Pt reports she did her exercises and enjoyed the Reiki session she had this morning. OBJECTIVE:Pt presented seated at edge of bed ? PAIN: 1-2 B knees VITALS: ?monitored by Nursing Therapeutic Activities (80839g[]): Direct one-on-one instruction in dynamic activities to improve functional performance. ?? -Provided skilled cues and instruction on performance and technique throughout. ? BED MOBILITY/TRANSFERS? am session: Rolling L/R: independent Supine-sit: independent ? Sit-supine: independent? am/pm Session Sit-stand:Supervision? Stand-sit:supervision ? Bed-Chair:Supervision with FWW? Chair-bed: Supervision with FWW Ambulation: ? Assistive Device: FWW? Weight bearing: WBAT BLE Assist: Supervision ? Distance:? 100 feet x1, 25 feet x 1(am session); 30 feet x 2 including amb in narrow spaces(pm session) ? Deviation: Excessive lateral weight shift to left to advance right LE, reduced knee flexion during swing phase ? AM session ? Therapeutic Exercises (63956v[]): Direct one-on-one instruction in therapeutic exercises to develop strength, endurance, range of motion and flexibility. ? Exercises ? per TKA protocol: supine quad sets, heelslides, ankle pumps , SLR, 2 sets 5 reps BLE, knee extension stretch with towel roll at ankle 3 x 30 sec BLE seated: LAQ , ankle pumps and heel slides 2 sets 5 reps BLE during pm session : pt able to demonstrate 2 reps of each exercise Provided skilled instruction in proper exercise performance ASSESSMENT:?Pt demonstrates improvement in motor control and strength B quads. Pt demonstrates impaired B glut medius strength as noted by excessive lateral weight shift during RLE advancement . Pt demonstrates progression with ambulation to supervision level with FWW. She has a ramp to enter her home. In PM session: Pt able to follow HEP with written instructions. Pt education and instruction provided in dressing technique and use of Cryocuff. PLAN:Home with HHPT TREATMENT CODE/TIME: 79746, 18727: [id number] 2nd session: 65265/ [id number] DISCHARGE RECOMMENDATION: Home with HHPT then Outpatient PT as scheduled
[2025-05-13] MEDS: Normal Saline Flush 10 ML SYR IV (12:12)
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
--- NOTE | 2025-05-13 15:46 | CMDISCH_ITS ---
LACE Index Scoring Tool Questions: Length of Stay (in days): 1 Was the patient admitted via the E.D.?: No Comorbidities: Diabetes w/o Complication and Liver or Renal Disease E.D. Visits: 1 Answers: Total Score: 7 Risk of Readmission: Low Risk Care Management Discharge Plan Reason for Hospitalization: Bilateral TKR Discharge Plan: Joan will be discharged home with new home health services for PT. She will follow up with her orthopedic surgeon and plan of care and transport with family. Patient/Family Education Needs: Review discharge instructions, discuss Ask Me Three Services Needed at Discharge: Home Health Care Services SDOH Health Related Social Needs: Health related social needs house/econ circumstance lo anne-marie/isolated
== END 2025-05-13 14:10 | disposition home health service (06) ==
LOC: MS 16:33
PROVIDERS: Admitting Provider Student in an Organized Health Care Education/Training Program; PCP Family Medicine; Responsible Provider Student in an Organized Health Care Education/Training Program; Visit Provider Student in an Organized Health Care Education/Training Program
PROC: 0SRC0JZ Replacement of Right Knee Joint with Synthetic Substitute, Open Approach (ICD-10-PCS; CPT 27447; principal; 2025-05-12 12:30)
DX: M17.0 Bilateral primary osteoarthritis of knee (principal); N99.0 Postprocedural (acute) (chronic) kidney failure; G89.18 Other acute postprocedural pain; M25.561 Pain in right knee; M25.562 Pain in left knee; E11.39 Type 2 diabetes mellitus with other diabetic ophthalmic complication; K76.0 Fatty (change of) liver, not elsewhere classified; L40.9 Psoriasis, unspecified; M85.80 Other specified disorders of bone density and structure, unspecified site; E78.5 Hyperlipidemia, unspecified; M10.9 Gout, unspecified; I10 Essential (primary) hypertension; F32.A Depression, unspecified; Z79.4 Long term (current) use of insulin; Z79.85 Long-term (current) use of injectable non-insulin antidiabetic drugs; Z79.899 Other long term (current) drug therapy; E11.65 Type 2 diabetes mellitus with hyperglycemia; E11.42 Type 2 diabetes mellitus with diabetic polyneuropathy
CPT/HCPCS: 27447; 36415; 64447; 80048; 82947; 85027; 96365; 96366; 97110; 97161; 97530; C1776; G0378; J0666; J0690; J1100; J1815; J2003; J2250; J2405; J2704; J3010; J3490

== ENCOUNTER 2025-05-25 13:19 | Outpatient (CLI) | payer MEDICARE, SELFPAY ==
--- NOTE | 2025-05-25 13:00 | DI.RAD_ITS ---
Exam(s) XR KNEE LT 1V XR KNEE RT 1V XR STANDING ALIGNMENT EXAM: XR STANDING ALIGNMENT CLINICAL HISTORY: 1st POST OP S/P BILAT TKAs. TECHNIQUE: 2D digital imaging was performed. Standing AP views were performed from the pelvis through the ankles. Weight-bearing lateral views of both knees. COMPARISON: CR XR STANDING ALIGNMENT from 01/22/2025 CR XR KNEE LT 1V from 05/25/2025 CR XR KNEE RT 1V from 05/25/2025 FINDINGS: BONES: No acute fracture is present. No bony destructive lesion is seen. Posterior fusion hardware in the lower lumbar spine. Leg length discrepancy: No significant overall leg length discrepancy. JOINTS: Knees: Bilateral total knee prostheses show show satisfactory alignment. No abnormal surrounding lucencies. The ankle joints are unremarkable. The hip joints are unremarkable. SOFT TISSUE: Normal. IMPRESSION: Satisfactory alignment of bilateral total knee prostheses. No significant leg length discrepancy. DATA REPOSITORY: RADIATION DOSE DELIVERED:
== END 2025-05-25 13:20 | disposition home or self-care (01) ==
LOC: DIORS 13:19
PROVIDERS: PCP Family Medicine; Referring Provider Family Medicine; Visit Provider Student in an Organized Health Care Education/Training Program
DX: Z47.1 Aftercare following joint replacement surgery (principal); Z96.653 Presence of artificial knee joint, bilateral
CPT/HCPCS: 99024; 73560; 77073

== ENCOUNTER → 2025-06-16 13:23 | Outpatient (BNVA) | payer MEDICARE, SELFPAY | PROVIDERS: PCP Family Medicine; Referring Provider Family Medicine; Visit Provider Physician Assistant | DX: Z47.1 Aftercare following joint replacement surgery (principal); Z96.653 Presence of artificial knee joint, bilateral | CPT/HCPCS: 99024 ==

== ENCOUNTER → 2025-06-16 14:14 | Outpatient (BNVA) | payer MEDICARE, SELFPAY | PROVIDERS: PCP Family Medicine; Referring Provider Family Medicine; Visit Provider Physical Therapy Assistant | DX: L89.610 Pressure ulcer of right heel, unstageable (principal); E11.9 Type 2 diabetes mellitus without complications; E66.9 Obesity, unspecified | CPT/HCPCS: 99213 ==

== ENCOUNTER → 2025-07-06 14:23 | Outpatient (BNVA) | payer MEDICARE, SELFPAY | PROVIDERS: PCP Family Medicine; Referring Provider Family Medicine; Visit Provider Physician Assistant | DX: Z47.1 Aftercare following joint replacement surgery (principal); Z96.653 Presence of artificial knee joint, bilateral | CPT/HCPCS: 99024 ==

== ENCOUNTER 2025-07-06 15:27 | Emergency (ER) | payer MEDICARE, SELFPAY ==
[2025-07-06 15:32] VITALS: BP 128/58; PULSE 86; RESP 20; TEMP 36.6; O2SAT 92
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
[2025-07-06] MEDS: Lidocaine/Epinephri/Tetracaine Topical Gel 3 ML (15:51)
--- NOTE | 2025-07-07 13:56 | NUR.NOTE ---
Per Lab: left breast culture is positive MRSA. Patient discharged on clindamycin HCI 150mg capsule; 450mg TID #63. Given to Dr Metzger. Nursing Note:
--- NOTE | 2025-07-07 15:25 | W.ED.FU ---
Date of service: 07/07/25 Time of Service: 15:25 Follow Up Plan: Telephone follow-up: Patient was contacted at provided home phone number in her chart. The at the time of contact the patient was sleeping however spoke with family member made them aware that we have new test results, and that the patient may contact us if they have any questions or she is having any new or concerning symptoms to seek evaluation in the emergency department. Labs: 07/06/25 16:40 Breast - Left Wound Culture - Preliminary Staph aureus, MRSA 07/06/25 16:40 Breast - Left Gram Stain - Final
--- NOTE | 2025-07-09 08:07 | NUR.NOTE ---
Accessed Pt chart to check to see if antibiotics were prescribed to patient. They were and this was documented on the Specimen Report. The report was given to the providers to follow up with.
--- NOTE | 2025-07-09 08:18 | W.ED.FU ---
Follow Up Plan: contacted pt's sister Sita and asked to discontinue clindamycin as not reported to be sensitive to MRSA strain. will rx linezolid. asked to stop tramadol and take celexa every other day while on this antibiotic. abscess doesn't look worse, but not reportedly improving. pt otherwise feels well per sister. recheck in 48 hours
== END 2025-07-06 16:57 | disposition home or self-care (01) ==
PROVIDERS: Emergency Provider Emergency Medicine; PCP Family Medicine
DX: N61.1 Abscess of the breast and nipple (principal)
CPT/HCPCS: 10060; 76642; 76942; 87077; 99284; 87070; 87186; 87205; 99283

== ENCOUNTER 2025-07-11 16:51 | Emergency (ER) | payer MEDICARE, SELFPAY ==
[2025-07-11 17:01] VITALS: BP 128/74; PULSE 96; RESP 16; TEMP 36.6; O2SAT 95
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
[2025-07-11 18:10] LABS: Anion Gap 9.9 mmol/L (3-11); BUN 26 mg/dL (7-18); CO2 29.1 mmol/L (21.0-32.0); Calcium 10.1 mg/dL (8.5-10.1); Chloride 99 mmol/L (98-107); Estimated GFR 37.26 (mL/min/1.73m2); Glucose 162 mg/dL (74-106); Potassium 3.9 mmol/L (3.5-5.1); Sodium 138 mmol/L (136-145)
--- NOTE | 2025-07-16 09:09 | NUR.NOTE ---
Access chart to get the PCP to send a prior auth for linezolid 600mg and citalopram 20mg. Nursing Note:
== END 2025-07-11 18:47 | disposition home or self-care (01) ==
PROVIDERS: Emergency Provider Emergency Medicine; PCP Family Medicine
DX: N61.1 Abscess of the breast and nipple (principal); A49.02 Methicillin resistant Staphylococcus aureus infection, unspecified site; E11.319 Type 2 diabetes mellitus with unspecified diabetic retinopathy without macular edema; I10 Essential (primary) hypertension; Z79.85 Long-term (current) use of injectable non-insulin antidiabetic drugs; Z79.84 Long term (current) use of oral hypoglycemic drugs; Z79.4 Long term (current) use of insulin
CPT/HCPCS: 80048; 99283

== ENCOUNTER → 2025-08-17 14:07 | Outpatient (BNVA) | payer MEDICARE, SELFPAY | PROVIDERS: PCP Family Medicine; Referring Provider Family Medicine; Visit Provider Physician Assistant | DX: Z47.1 Aftercare following joint replacement surgery (principal); Z96.653 Presence of artificial knee joint, bilateral | CPT/HCPCS: 99213 ==